=== PATIENT | female | born 1985 | race African-American/Black ===

== ENCOUNTER 2023-04-18 09:29 | Emergency (ER) | payer OTHER, SELFPAY ==
--- NOTE | ~2023-04-18 | US_ITS ---
EXAMINATION: US OBSTETRICAL ULTRASOUND CLINICAL INFORMATION: 2 months with pain COMPARISON: None available. LMP: Unknown. Gestational age by maternal dates is unknown. Estimated date of delivery by maternal dates is unknown. TECHNIQUE: Transabdominal imaging of pelvis is performed. FINDINGS: There is a single intrauterine gestational sac with visible embryo/fetus, and cardiac activity. Yolk sac is not visualized There is no significant subchorionic hemorrhage or hematoma. HR: 156 beats per minute. CRL (crown rump length): 2.37 cm (9 weeks and 1 day +/- 4 days). SAM (estimated date of delivery): 11/20/2023 +/- 4 days. MATERNAL ADNEXA: The right maternal ovary measures 2.3 x 1.1 x 1.6 cm. The left maternal ovary measures 3.7 x 2.4 x 2.1 cm. There is anechoic cyst measuring 1.1 x 1.4 x 0.9 cm. An echogenic cyst with peripheral flow seen suggestive of corpus luteal cyst measuring 1.1 x 1.2 x 1.6 cm. There is no significant maternal adnexal mass. No maternal pelvic ascites. US/US OB <= 14 weeks fetus IMPRESSION: 1. Single intrauterine gestation with ultrasound gestational age of 9 weeks 1 day +/- 4 days. 2. Estimated date of delivery is 11/20/2023 +/- 4 days. 3. Simple and corpus luteal cyst left ovary.
[2023-04-18 10:04] VITALS: BP 123/75; PULSE 92; RESP 16; TEMP 36.7; O2SAT 99
--- NOTE | 2023-04-18 10:06 | PC.NURSE ---
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
[2023-04-18 10:39] VITALS: BMI 35.4
--- NOTE | 2023-04-18 11:01 | ED.ABDPAIN ---
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 patient comes in with lower abdominal pain for 2 months and two months with no period. Patient does not feel like she is . patient does not currently have a doctor. No fever, there is dysuria, no vaginal discharge. no history of surgery, . Onset (ago): month(s) Pain Consistency: constant Severity: mild Related Data Allergies Allergy/AdvReac Type Severity Reaction Status Date / Time No Known Allergies Allergy Verified 04/18/23 11:11 Review of Systems Review of Systems Yes all other systems are reviewed and are negative Comments: Low abdominal pain with dysuria. [facility] Social History Social History Advance Directives: No Advance Directives Information Provided: No Physical Exam ED Vital Signs: Vital Signs - 24 hr 04/18/23 10:04 Temperature 98.0 F Pulse Rate 92 Respiratory Rate 16 Blood Pressure 123/75 Pulse Oximetry 99 Oxygen Delivery Method Room Air BMI result Body Mass Index 35.4 Const General: healthy appearing Nutritional Appearance: average body habitus Orientation/consciousness: oriented to person and patient oriented x3 Limitations: no limitations HENMT Head: Yes normal to inspection Ears: external ears normal General nose exam: Normal external nose present Mouth: Normal oral and palatal mucosa present and oropharynx normal Throat: Yes posterior oropharynx normal Eyes General: appearance normal, both eyes and all related structures Neck Neck: Yes normal visual inspection Chest Chest palpation & inspection: normal inspection of the chest Resp Auscultation: clear to auscultation bilaterally Cardio Jugular venous distension: no JVD Rate: regular rate Rhythm: regular rhythm Heart sounds: S1 normal heart sound present and S2 normal heart sound present GI Other: soft lower abdomen and suprapubic tenderness Palpation (GI): Tenderness to palpation present (GI) General: Yes no CVA tenderness Back/Spine/Pelvis Back: no CVA tenderness Skin General skin exam: no rashes or lesions noted Neuro General: oriented to person and patient oriented x3 Cranial nerves: Yes CN's II-XII intact bilaterally Motor exam (neuro): 5/5 motor strength present throughout Extrem General: Yes normal to inspection Psych Appearance: grossly normal Course Reevaluation(s) Reevaluation #1: patient with no evidence of UTI, she is 9 weeks will dc home with follow up for Dr. Pleitez Time: 14:49 Medical Decision Making Differential Diagnosis Differential Diagnoses: The differential diagnosis associated with the presentation includes (UTI, STD, ovarian cyst, ) Lab Data MDM Lab Attestation statement: I reviewed the patient's lab results. 04/18/23 11:17 04/18/23 11:17 Labs: Lab Results 04/18/23 04/18/23 04/18/23 Range/Units 10:43 10:45 11:17 WBC 7.8 (4.8-10.8) X10*3/uL RBC 4.37 (4.20-5.50) X10*6/uL Hgb 12.9 (12.0-16.0) g/dl Hct 39.4 (37.0-47.0) % MCV 90.2 (80.0-98.0) fL MCH 29.5 (27.0-33.0) pg MCHC 32.7 (31.0-35.0) g/dl RDW 14.1 (11.0-16.0) % Plt Count 280 (160-400) X10*3/uL MPV 9.1 L (9.4-12.3) fL Immature Gran % (Auto) 0.5 H (0.0-0.4) % Neut % (Auto) 59.4 (45-73) % Lymph % (Auto) 30.7 (20-40) % [place] % (Auto) 6.8 (2-11) % Eos % (Auto) 2.3 (0-4) % Baso % (Auto) 0.3 (0-2) % Lymph # (Auto) 2.4 (1.2-4.9) X10*3/uL [place] # (Auto) 0.5 (0.1-1.2) X10*3/uL Eos # (Auto) 0.2 (0.0-0.4) X10*3/uL Baso # (Auto) 0.0 (0.0-0.2) X10*3/uL Abs Immat Gran (auto) 0.04 H (0.00-0.03) X10*3/uL Absolute Neuts (auto) 4.6 (2.0-8.3) x10*3/uL Absolute Nucleated RBC 0.000 (0.0-0.012) X10*3/uL Nucleated RBC % (auto) 0.0 (0.0-0.2) /100WBC Sodium (135-145) mmol/L Potassium (3.3-5.1) mmol/L Chloride (96-108) mmol/L Carbon Dioxide (22-29) mmol/L Anion Gap (12-20) BUN (9-16) mg/dL Creatinine (0.5-1.4) mg/dL Estim Creat Clear Calc Estimated GFR Random Glucose (60-115) mg/dL Calcium (8.4-10.2) mg/dL Urine Color Yellow Urine Appearance Clear Urine pH 7.5 (5.0-9.0) Ur Specific [place] 1.010 (1.005-1.025) Urine Protein Negative (Neg-Trace) mg/dL Urine Glucose (UA) Negative (Negative) mg/dL Urine Ketones Negative (Negative) mg/dL Urine Blood Negative (Negative) Urine Nitrite Negative (Negative) Ur Leukocyte Esterase Moderate (2+) H (Negative) Urine RBC 0-2 (0-2) /HPF Urine WBC 6-10 (0-5) /HPF Ur Squamous Epith Cells 6-10 (0-2) /HPF Urine Bacteria Trace (None Seen) Hyaline Casts 0-2 (0-2) /LPF Urine Test POSITIVE H (NEGATIVE) 04/18/23 Range/Units 11:17 WBC (4.8-10.8) X10*3/uL RBC (4.20-5.50) X10*6/uL Hgb (12.0-16.0) g/dl Hct (37.0-47.0) % MCV (80.0-98.0) fL MCH (27.0-33.0) pg MCHC (31.0-35.0) g/dl RDW (11.0-16.0) % Plt Count (160-400) X10*3/uL MPV (9.4-12.3) fL Immature Gran % (Auto) (0.0-0.4) % Neut % (Auto) (45-73) % Lymph % (Auto) (20-40) % [place] % (Auto) (2-11) % Eos % (Auto) (0-4) % Baso % (Auto) (0-2) % Lymph # (Auto) (1.2-4.9) X10*3/uL [place] # (Auto) (0.1-1.2) X10*3/uL Eos # (Auto) (0.0-0.4) X10*3/uL Baso # (Auto) (0.0-0.2) X10*3/uL Abs Immat Gran (auto) (0.00-0.03) X10*3/uL Absolute Neuts (auto) (2.0-8.3) x10*3/uL Absolute Nucleated RBC (0.0-0.012) X10*3/uL Nucleated RBC % (auto) (0.0-0.2) /100WBC Sodium 137 (135-145) mmol/L Potassium 3.9 (3.3-5.1) mmol/L Chloride 107 (96-108) mmol/L Carbon Dioxide 23 (22-29) mmol/L Anion Gap 11 L (12-20) BUN 7 L (9-16) mg/dL Creatinine 0.72 (0.5-1.4) mg/dL Estim Creat Clear Calc 107.9 Estimated GFR > 60 Random Glucose 87 (60-115) mg/dL Calcium 9.0 (8.4-10.2) mg/dL Urine Color Urine Appearance Urine pH (5.0-9.0) Ur Specific [place] (1.005-1.025) Urine Protein (Neg-Trace) mg/dL Urine Glucose (UA) (Negative) mg/dL Urine Ketones (Negative) mg/dL Urine Blood (Negative) Urine Nitrite (Negative) Ur Leukocyte Esterase (Negative) Urine RBC (0-2) /HPF Urine WBC (0-5) /HPF Ur Squamous Epith Cells (0-2) /HPF Urine Bacteria (None Seen) Hyaline Casts (0-2) /LPF Urine Test (NEGATIVE) Independent Interpretation I performed an independent interpretation of an: Ultrasound (IUP with ) Radiology Impression Discussion of test interpretation with radiology: I have reviewed the radiologist's reading. Independent Historian Clinical information obtained from an independent historian. History obtained from or confirmed by: Spouse and Other (HIstory obtained through air traffic control supervisor) Social Determinants Patient?s care significantly limited by Social Determinants of Health including: Other Social Determinant of Health (Immigrated from [facility], no health care in the ) Discharge Plan Discharge Clinical Impression: Incidental intrauterine Patient Disposition: Home, Self-Care Instructions: First Trimester (ED) Referrals: Marino Pleitez MD [Physician] - 1 week
[2023-04-18 11:06] LABS: Appearance Urine Clear; Color Urine Yellow; Glucose Urine UA Negative (Negative); Leukocyte Esterase Urine Moderate (2+) (Negative); Nitrite Urine Negative (Negative); PH 7.5 (5.0-9.0); UMIC TRIGGER UACC YES; Urine Blood Negative (Negative); Urine Ketones Negative (Negative); Urine Protein Negative (Neg-Trace)
[2023-04-18 11:22] LABS: MANUAL DIFF FLAG NO
[2023-04-18 11:24] LABS: Basophils Percent Auto 0.3 % (0-2); Eosinophils Absolute Auto 0.2 X10*3/uL (0.0-0.4); Eosinophils Percent Auto 2.3 % (0-4); Hematocrit 39.4 % (37.0-47.0); Hemoglobin 12.9 g/dl (12.0-16.0); Imm Gran Abs Auto 0.04 X10*3/uL (0.00-0.03); Imm Gran Pct Auto 0.5 % (0.0-0.4); Lymphocytes Absolute Auto 2.4 X10*3/uL (1.2-4.9); Lymphocytes Percent Auto 30.7 % (20-40); Mean Corpuscular HGB Conc 32.7 g/dl (31.0-35.0); Mean Corpuscular Hemoglobin 29.5 pg (27.0-33.0); Mean Corpuscular Volume 90.2 fL (80.0-98.0); Mean Platelet Volume 9.1 fL (9.4-12.3); Monocytes Absolute Auto 0.5 X10*3/uL (0.1-1.2); Monocytes Percent Auto 6.8 % (2-11); Neutrophils Absolute Auto 4.6 x10*3/uL (2.0-8.3); Neutrophils Percent Auto 59.4 % (45-73); Platelet Count 280 X10*3/uL (160-400); Red Blood Count 4.37 X10*6/uL (4.20-5.50); Red Cell Distribution Width 14.1 % (11.0-16.0); White Blood Count 7.8 X10*3/uL (4.8-10.8)
[2023-04-18 11:25] LABS: UPreg QC Valid YES; Urine Pregnancy POSITIVE (NEGATIVE)
[2023-04-18 11:36] LABS: Anion Gap 11 (12-20); Blood Urea Nitrogen 7 mg/dL (9-16); Carbon Dioxide 23 mmol/L (22-29); Chloride 107 mmol/L (96-108); Creatinine Clr Calc Pharmacy 107.9; Estimated Glomerular Filt Rate > 60; Glucose Random 87 mg/dL (60-115); Potassium 3.9 mmol/L (3.3-5.1); Sodium 137 mmol/L (135-145)
[2023-04-18 11:43] LABS: Bacteria Urine Trace (None Seen); Hyaline Casts Urine 0-2 /LPF (0-2); RBC Urine 0-2 /HPF (0-2); UACC Culture Trigger YES
== END 2023-04-18 15:21 | disposition home or self-care (01) ==
PROVIDERS: Emergency Provider Emergency Medicine
DX: R10.30 Lower abdominal pain, unspecified (principal); Z33.1 Pregnant state, incidental
CPT/HCPCS: 36415; 76801; 80048; 81001; 81003; 81025; 85025; 87086; 99283; 99284

== ENCOUNTER 2023-05-30 10:08 | Outpatient (REF) | payer OTHER, SELFPAY ==
[2023-06-03 03:27] LABS: HPV mRNA E6/E7 rflx Not Detected (Not Detected)
== END 2023-05-30 10:09 | disposition home or self-care (01) ==
LOC: HO.LNP 10:08
PROVIDERS: Visit Provider Obstetrics & Gynecology
DX: Z12.4 Encounter for screening for malignant neoplasm of cervix (principal); Z11.51 Encounter for screening for human papillomavirus (HPV)
CPT/HCPCS: 87624; 88142

== ENCOUNTER 2023-05-30 10:08 | Outpatient (AMB) | payer OTHER, SELFPAY ==
[2023-05-30 10:15] VITALS: BP 110/80; BMI 42.1
--- NOTE | 2023-05-30 10:15 | A.OFFVIS_ITS ---
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 The patient was seen in 04/18/2023 in the emergency room ultrasound showed an IUP at 9 weeks and 1 day of gestation making her by today at 15 weeks and 1 day of gestation. The patient is doing well with no complaints no vitamin started had no care done yet for previous vaginal delivery with no complication PFS Female Reproductive History Menstrual Age of Menarche: 15 Duration of menses: 3-5 days control method: none Total pregnancies: 4 Full term: 4 Number of Living Children: 4 Review of Systems Const All systems reviewed & are unremarkable except as noted in HPI and below Card Reports as per HPI Resp Reports as per HPI GI Reports as per HPI and Reports no additional complaints Reports as per HPI Physical Exam Vital Signs: Last Vital Signs BP 110/80 05/30/23 10:15 BMI result Body Mass Index 42.1 Const General: cooperative, healthy appearing and comfortable Chest Chest palpation & inspection: normal inspection of the chest and normal palpation of entire chest wall Breast/axilla inspection: normal inspection of the breasts and normal inspection of the axillae Breast/axilla palpation: normal palpation of the breasts, normal palpation of the axillae and no axillary lymphadenopathy Resp Effort & Inspection: normal respiratory effort Auscultation: clear to auscultation bilaterally Percussion: percussion normal Cardio Palpation: normal PMI Rate: regular rate Rhythm: regular rhythm Heart sounds: no murmurs and no rubs Peripheral pulses: Peripheral pulses 2+ throughout GI Inspection: Yes normal to inspection Palpation (GI): Soft to palpation, nontender, no guarding, not rigid and No hepatosplenomegaly present Percussion: Yes normal to percussion Auscultation: normal bowel sounds Rectal Exam - Female: deferred Other: heart rate 150s General: Yes bladder normal to palpation External Female Exam: No lesion Speculum Exam - Vagina: normal appearance of the vagina, normal palpation, normal vaginal discharge and not erythematous Speculum Exam - Cervix: normal appearance of the cervix and normal palpation Bimanual exam- vagina & uterus: normal bimanual exam, normal palpation, bladder normal to palpation, consistency normal, normal palpation and other (Fifteen week scribed uterus) Bimanual Exam- Adnexa, other: normal adnexae, no masses and no tenderness Assessment & Plan Assessment & Plan (1) : Code(s): Z34.90 - Encounter for supervision of normal , unspecified, unspecified trimester Plan: Co testing, which GC and chlamydia taken. Initial OB labs ordered including CBC, screen, hepatitis-B surface antigen, hepatitis-C antibody, HIV, rubella antibody, syphilis screen, varicella immunoglobulins, urine drug screen, 1 hour glucose screen since the patient is a elevated BMI, hemoglobin electrophoresis, urine drug screen Since the patient is AMA will refer to genetic counseling FAS at 18 weeks Also discussed with the patient the CF disorder and its implications on lifestyle of affected individuals, large number of mutations causing this disorder, the screening test and its detection rate, false negative/positive rate and the residual risk of a negative test. CF screen ordered. All questions answered, the patient verbalized understanding. AFP for neural tube defects screening ordered vitamin 1 tablet p.o. q.d. sent to the patient's pharmacy SAB warnings given the patient, she is to call in case of cramping and or vaginal bleeding. Follow-up in 2 weeks for initial OB visit Orders: Orders Screen Today Z32. - Encounter for test, result positive Alpha Fetoprotein Today 32. - Encounter for test, result positive CF Carrier Screen Today . - Encounter for test, result positive Glucose 1 Hour PP 50gm Dose Today Z32. - Encounter for test, result positive Complete Blood Count no Diff Today . - Encounter for test, result positive Hemoglobin Electrophoresis Today 32. - Encounter for test, result positive Urine Culture Today . - Encounter for test, result positive Hepatitis B Surface Antigen Today Z32. - Encounter for test, result positive Hepatitis C Antibody Today . - Encounter for test, result positive HIV Ab/Ag Today Z32.01 - Encounter for test, result positive Rubella IgG Antibody Today Z32.01 - Encounter for test, result positive Syphilis Screen Today Z32.01 - Encounter for test, result positive Varicella IgG Antibody Today Z32.01 - Encounter for test, result positive Drug Screen Urine Today Z32.01 - Encounter for test, result positive US OB /maternal detail 3 Weeks Z32.01 - Encounter for test, result positive Medications: New no.144-folic acid 400 mcg 1 tab PO DAILY 180 days 180 tabs 1RF Coding Level of Care Code New Pt Level 3 (00313) Diagnoses Z34.90
== END 2023-05-30 10:48 | disposition home or self-care (01) ==
LOC: HO.HWS 10:08
PROVIDERS: Visit Provider Obstetrics & Gynecology
DX: Z34.90 Encounter for supervision of normal pregnancy, unspecified, unspecified trimester (principal)
CPT/HCPCS: 99203

== ENCOUNTER 2023-05-30 10:55 | Outpatient (REF) | payer OTHER, SELFPAY ==
[2023-05-31 12:00] LABS: CT PCR NOT DETECTED (Not Detect.); NG PCR NOT DETECTED (Not Detect.)
== END 2023-05-30 10:56 | disposition home or self-care (01) ==
LOC: HO.LAB 10:55
PROVIDERS: Visit Provider Obstetrics & Gynecology
DX: Z34.90 Encounter for supervision of normal pregnancy, unspecified, unspecified trimester (principal)
CPT/HCPCS: 0353U

== ENCOUNTER 2023-06-01 09:54 | Outpatient (REF) | payer OTHER, SELFPAY ==
[2023-06-01 12:07] LABS: Hematocrit 38.4 % (37.0-47.0); Hemoglobin 12.6 g/dl (12.0-16.0); Mean Corpuscular HGB Conc 32.8 g/dl (31.0-35.0); Mean Corpuscular Hemoglobin 29.1 pg (27.0-33.0); Mean Corpuscular Volume 88.7 fL (80.0-98.0); Mean Platelet Volume 9.8 fL (9.4-12.3); Platelet Count 306 X10*3/uL (160-400); Red Blood Count 4.33 X10*6/uL (4.20-5.50); Red Cell Distribution Width 14.1 % (11.0-16.0); White Blood Count 7.9 X10*3/uL (4.8-10.8)
[2023-06-01 12:39] LABS: Glucose 1 Hour PP 50gm Dose 93 mg/dL (60-140)
[2023-06-01 14:00] LABS: Amphetamine Screen Urine Not Detected (Not Detect); Barbiturates, Urine Not Detected (Not Detect); Benzodiazepines Screen Urine Not Detected (Not Detect); Cannabinoid Screen Urine Not Detected (Not Detect); Cocaine Screen Urine Not Detected (Not Detect); Fentanyl, urine Not Detected (Not Detect); Opiate Screen Urine Not Detected (Not Detect); Phencyclidine Screen Urine Not Detected (Not Detect)
[2023-06-02 05:15] LABS: HBsAGNum1 0.36 S/CO (0.00-0.99); HIV AB/AG Nonreactive (Nonreactive); HIV Num 1 0.06 S/CO (0.00-0.99); Hepatitis B Surface Antigen Negative (Negative); ~HepC Num1 0.11 S/CO (0.00-0.79); ~Hepatitis C Antibody Nonreactive (Nonreactive)
[2023-06-02 12:01] LABS: Syphilis Screen Nonreactive (Nonreactive)
[2023-06-05 13:28] LABS: Alpha Fetoprotein 28.8 ng/mL
[2023-06-05 23:44] LABS: Hematocrit 38.1 % (35.0-45.0); Hemoglobin 12.7 g/dL (11.7-15.5); MCH 29.9 pg (27.0-33.0); MCV 89.6 fL (80.0-100.0); RBC 4.25 Million/uL (3.80-5.10)
[2023-06-13 00:38] LABS: CF Ethnicity NG; Cystic Fibrosis NEGATIVE (NEGATIVE)
== END 2023-06-01 09:55 | disposition home or self-care (01) ==
LOC: HO.LAB 09:54
PROVIDERS: PCP Obstetrics & Gynecology; Visit Provider Obstetrics & Gynecology
DX: Z32.01 Encounter for pregnancy test, result positive (principal)
CPT/HCPCS: 80307; 81220; 82105; 82950; 83020; 85014; 85018; 85027; 85041; 86762; 86780; 86787; 86803; 86850; 86900; 87086; 87340; 87389

== ENCOUNTER → 2023-06-13 10:04 | Outpatient (BNVA) | payer OTHER, SELFPAY | PROVIDERS: PCP Obstetrics & Gynecology; Visit Provider Obstetrics & Gynecology ==

== ENCOUNTER 2023-06-16 10:01 | Outpatient (REF) | payer OTHER, SELFPAY | END 2023-06-16 10:02 | disposition home or self-care (01) | LOC: HO.LAB 10:01 | PROVIDERS: Visit Provider Obstetrics & Gynecology | DX: O09.529 Supervision of elderly multigravida, unspecified trimester (principal) | CPT/HCPCS: 36415; 82105 ==

== ENCOUNTER 2023-06-23 13:38 | Outpatient (AMB) | payer OTHER, SELFPAY ==
--- NOTE | 2023-06-23 13:39 | A.OFFVISPN_ITS ---
Intake Vital Signs 06/23/23 13:49 Height 5 ft 1 in Weight 225 lb BMI 42.5 BP 122/82 Blood Pressure Location Lt brachial Position Sitting Intake Visit Reasons: CARLOS Employee Benefits Insurance Agent Required: Yes Employee Benefits Insurance Agent Language: Maria Arnett Employee Benefits Insurance Agent Name: [id number] Allergies No Known Allergies Allergy (Verified 06/23/23 13:48) Patient : Yes PFSH Medical History (Updated 06/23/23 @ 16:02 by Dorota Cherry CNM) AMA (advanced maternal age) multigravida 35+ Obesity, morbid, BMI 40.0-49.9 Social History (Updated 06/13/23 @ 10:48 by Malena Jarrett) Household Members: Spouse and Family Both parents involved: Yes Caregiver staying overnight: No Housing: Apartment Are you a primary day care attendant to a significant other at home: No Do you presently have visiting nurse or other home services: No 75 years or older and lives alone: No Alcohol intake: never Patient Tobacco Use Status: Never used Tobacco Agree to transfusion: Yes service: No Current occupational status: unemployed Female Reproductive History Menstrual Age of Menarche: 15 Total pregnancies: 5 Number of Living Children: 4 History History 5 Elective abortions 0 Para 4 Spontaneous abortions 0 Hx # Term Pregnancies 4 Ectopic pregnancies 0 Hx # Pregnancies 0 Multiple births 0 Past Pregnancies Del. Date GA/Weeks Outcome Route Wt Inf Gender Labor Cleo Anesthesia Location Provider Complicate 04/29/06 40 live - full term Male [facility] none 10/26/09 40 live - full term Male [facility] none 12/23/11 40 live - full term Male [facility] none 06/22/13 40 live - full term Female [facility] none Questionnaire History History : 5 Visit SAM Calculator Estimated Delivery Date Method Current WG Current Estimate 11/20/23 Ultrasound #1 18w 4d Expected Delivery Route/Plan Specific Issues/Plans AMA BMI 42 OB Problem List: 37yr. old ? ? G5 ?P4004 ? ? ?LMP: EDC:11/20/23 ?by 9 w u/s ? ? ?Blood type: A pos Problem List: 1. recent refugee to [place] from [facility] via [place], speaks Emirati Creole Slovenian, and Jordanian and Amharic Testing: Panorama/and or First Tri screen: ? ?risk too late,,,, NT scan: AFP:..see RN note FAS: pending 07/04 Glucose: early n/a? 28 wk glucose: ? CBC 1st Tri: 12.7/38.4/306? 28 wk. CBC: GBS: Vaccinations: Flu: Covid: Tdap: Education/Services WIC: CBE: Breast feeding classes: Social Supports/Stressors: Living situation: living in mcc in [place] in own apartment with family( and other children). Supports:?, Work/school: Transportation: unclear but states she has transportation Labor, and Concerns: Labor support: Plan: Hx of normal births.... Infant Feeding Plans: control: wants no more children after this 1 but does not have specific plan at this time 06/23/23- continue to explore.... OB Visit Log Initial Weight: 189 lb 9.561 oz Date -?-?-?-?-?-?-?-?-?-?-?-?- EGA Weight Gest Week Fundal Ht Present FHR move Efface % Edema BP PrePreg We Weight GTT -?-?-?-?-?-?-?-?-?-?-?-?- Glucose LV Protein Blood Type 06/13/23 -?-?-?-?-?-?-?-?-?-?-?-?- 17w 1d 222 lb 8 oz (+32 lb 14.439 oz) 222 lb 8 oz -?-?-?-?-?-?-?-?-?-?-?-?- 06/23/23 -?-?-?-?-?-?-?-?-?-?-?-?- 18w 4d 225 lb (+35 lb 6.439 oz) 18 140 active 122/82 225 lb -?-?-?-?-?-?-?-?--?-?-?-?- Notes Visit Date: 06/23/23 Last Updated by: Dorota Cherry CNM Patient presents to visit which is scheduled as an OB PE however she has signed in later than appointment time though she says she arrived on time.. Patient speaks Slovenian Emirati Creole. It developed at the very end of the visit that she also speaks Jordanian which turned out to be a better way of communication then using the translation tablet. Patient appeared annoyed during the visit and it was not until she volunteered that she spoke Jordanian at the end and I was able to communicate with her in Jordanian that she smiled and she and her relaxed and were able to communicate more freely. They live in a mcc they have their own apartment there are other families there from [facility] but they all have their own apartments. She says she does have transportation to get to [facility] for the ultrasound and that took quite a bit of translation to establish. I did let her know that that is going to be where she is going to give as well in reviewing the chart while she today she is scheduled for new OB PE visit it develops that when she saw Dr. Pleitez on 05/30/2023 he did a complete exam for her on that day including Pap smear and testing for STIs which were all negative. She has had all of her blood work and it was all negative and she is not anemic and because she has no history of gestational diabetes that was not necessary to be done. She has her OB anatomy survey ultrasound at [facility] and she has the address written down in her wallet and she is going there on July 04. We will see her again in 4 weeks. She tells me she is eating well and getting plenty of protein and vegetables. Neither she nor her had other questions or concerns today for this visit. I did acknowledge that it must be very challenging to be in a new country and when she shared that she spoke Jordanian we were able to get much further. I will send her vitamin prescription by computer to [facility] and explained to her that there is no written prescription and that is how she will get the prescription. additionally she shared that she delivered all of her children in the hospital in [facility] and she had no difficulty. And I also inquired as to what her future plans for having babies was and she said that she is having no more babies after this 1 and that she is done having babies after this. I asked her what her plan was and she said her plan is no more babies and I said we will talk about this further in future visits so that we workout exactly how she will accomplish this but she is very clear that she does not want anymore children after this 1. 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 LMP unknown. US on 04/18/23 at 9w1d gives SAM of 11/20/23 and GA today of 17w1d. She has moved here from [facility]. BMI is 42. This was unplanned but the couple is happy. Pt saw Dr Pleitez for consult and has already had her labs done. She is scheduled for OB PE 06/23/23 with Dorota and for FAS at [facility] 07/04/23 @ 0830. She had an appt for genetic counseling at [facility] 06/07/23, report of visit is pending. Pt was given a folder in Jordanian as she does speak the language somewhat but her first language is Emirati Creole. We reviewed danger signs, MD coverage 12/06 and how to reach MD after hours. She is taking her PNV daily and has no c/o at this time. AFP was ordered by Dr Pleitez but the result was for tumor marker and not . Will add order for AFP maternal serum and send the ordering worksheet once it is completed to Chemistry. Pt was too late for NT US but is scheduled for FAS as noted above. Pt will go to lab in the next couple of days. We reviewed first trimester education. Bry has no further questions at this time. She verbalizes understanding and agrees with plan. 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 Patient's age 35 years or older as of estimated date of delivery: Yes 2. Thalassemia (Yoruba, Thai, Mediterranean, or Background); MCV less than 80: No 3. Neural Tube Defect (Meningomyelocele, Spina Bifida, or Anencephaly): No 4. Congenital Heart Defect: No 5. Down Syndrome: No 6. Pete-Sachs (Ashkenazi Denominational, Cajun, Slovenian [place]): No 7. Jaime Disease (Ashkenazi Denominational): No 8. Familial Dysautonomia (Ashkenazi Denominational): No 9. Sickle Cell Disease or Trait (): No 10. Hemophilia or other blood disorders: No 11. Muscular Dystrophy: No 12. Cystic Fibrosis: No 13. Luisa's Chorea: No 14. Intellectual disability/Autism: No 15. Other inherited genetic or chromosomal disorder: No 16. Maternal Metabolic Disorder (EG,TYPE 1 Diabetes, PKU): No 17. Patient or baby's father had a child with defects not listed above: No 18. Recurrent loss or a stillbirth: No 19. Medications (including supplements, vitamins, herbs or otc drugs)/illicit/recreational drugs/alcohol since last menstrual period: No 20. Any other: No Infection History 1. Live with someone with TB or exposed to TB: No 2. Rash or viral illness since last menstrual period: No 3. Hepatitis B,C: No Other (see comments) Source: [employer] Exam Const Other: Below is the record of Dr. Pleitez's complete physical exam that he did for this patient on 05/30/2023, to be used for her OB physical as it is complete. She had her Pap smear which is negative as well as testing for STIs and she also had all of her initial lab work which was all within normal limits. She is not anemic she has no history of gestational diabetes so no glucose screening was necessary.----Ellen [facility] [address] [place] [id number] Office Visit Report Signed Patient: Bry Durbin MR#: [id number] : 1985 Acct:[id number] Age/Sex: 37 / F ADM/SER Date: 05/30/23 Loc: [facility] ADM/SER Time:1008 Attending Provider: Marino Pleitez MD cc: Physician,Unknown ~ Intake Vital Signs ? 05/30/2310:15 Height 5 ft 1 in Weight 223 lb BMI 42.1 BP 110/80 Intake Visit Reasons:?ER follow up/Creole Employee Benefits Insurance Agent Employee Benefits Insurance Agent Required: Yes Employee Benefits Insurance Agent Language: Emirati Creole Employee Benefits Insurance Agent Name: Braeden [id number] Information Interpreted: non-clinical & clinical Hearth Feeder: Hearth Feeder Present (Brittnee) Allergies No Known Allergies Allergy (Verified 05/30/23 10:19) Is last menstrual period known: No (forgot) Post menopausal: No HPI HPI Comments History of Present Illness ? ? ? Details Presenting as ED follow-up.? The patient was seen in 04/18/2023 in the emergency room ultrasound showed an IUP at 9 weeks and 1 day of gestation making her by today at 15 weeks and 1 day of gestation.? The patient is doing well with no complaints no vitamin started had no care done yet for previous vaginal delivery with no complication ? PFSH Female Reproductive History Menstrual Age of Menarche: 15 Duration of menses: 3-5 days control method: none Total pregnancies: 4 Full term: 4 Number of Living Children: 4 Review of Systems Const All systems reviewed & are unremarkable except as noted in HPI and below Card Reports as per HPI Resp Reports as per HPI GI Reports as per HPI and Reports no additional complaints Reports as per HPI Physical Exam Vital Signs: Last Vital Signs BP ?110/80 ?05/30/23 10:15 BMI result Body Mass Index ? 42.1? Const General: cooperative, healthy appearing and comfortable Chest Chest palpation & inspection: normal inspection of the chest and normal palpation of entire chest wall Breast/axilla inspection: normal inspection of the breasts and normal inspection of the axillae Breast/axilla palpation: normal palpation of the breasts, normal palpation of the axillae and no axillary lymphadenopathy Resp Effort & Inspection: normal respiratory effort Auscultation: clear to auscultation bilaterally Percussion: percussion normal Cardio Palpation: normal PMI Rate: regular rate Rhythm: regular rhythm Heart sounds: no murmurs and no rubs Peripheral pulses: Peripheral pulses 2+ throughout GI Inspection: Yes normal to inspection Palpation (GI): Soft to palpation, nontender, no guarding, not rigid and No hepatosplenomegaly present Percussion: Yes normal to percussion Auscultation: normal bowel sounds Rectal Exam - Female: deferred Other: heart rate 150s General: Yes bladder normal to palpation External Female Exam: No lesion Speculum Exam - Vagina: normal appearance of the vagina, normal palpation, normal vaginal discharge and not erythematous Speculum Exam - Cervix: normal appearance of the cervix and normal palpation Bimanual exam- vagina & uterus: normal bimanual exam, normal palpation, bladder normal to palpation, consistency normal, normal palpation and other (Fifteen week scribed uterus) Bimanual Exam- Adnexa, other: normal adnexae, no masses and no tenderness Assessment & Plan Assessment & Plan (1) : ?Code(s): Z34.90 - Encounter for supervision of normal , unspecified, unspecified trimester ?Plan: Co testing, which GC and chlamydia taken.? Initial OB labs ordered including CBC, screen, hepatitis-B surface antigen, hepatitis-C antibody, HIV, rubella antibody, syphilis screen, varicella immunoglobulins, urine drug screen, 1 hour glucose screen since the patient is a elevated BMI, hemoglobin electrophoresis, urine drug screen Since the patient is AMA will refer to genetic counseling FAS at 18 weeks Also discussed with the patient the CF disorder and its implications on lifestyle of affected individuals,? large number of mutations causing this disorder, the screening test and its detection rate, false negative/positive rate and the residual risk of a negative test.? CF screen ordered.? All questions answered, the patient verbalized understanding. AFP for neural tube defects screening ordered vitamin 1 tablet p.o. q.d. sent to the patient's pharmacy SAB warnings given the patient, she is to call in case of cramping and or vaginal bleeding. Follow-up in 2 weeks for initial OB visit ? ? ? Orders: Orders Screen Today Z. - Encounter for test, result positive ? Alpha Fetoprotein Today Z32. - Encounter for test, result positive ? CF Carrier Screen Today Z32. - Encounter for test, result positive ? Glucose 1 Hour PP 50gm Dose Today Z32. - Encounter for test, result positive ? Complete Blood Count no Diff Today Z32. - Encounter for test, result positive ? Hemoglobin Electrophoresis Today Z32. - Encounter for test, result positive ? Urine Culture Today Z. - Encounter for test, result positive ? Hepatitis B Surface Antigen Today Z. - Encounter for test, result positive ? Hepatitis C Antibody Today Z32. - Encounter for test, result positive ? HIV Ab/Ag Today Z32. - Encounter for test, result positive ? Rubella IgG Antibody Today Z. - Encounter for test, result positive ? Syphilis Screen Today Z32. - Encounter for test, result positive ? Varicella IgG Antibody Today Z32. - Encounter for test, result positive ? Drug Screen Urine Today Z. - Encounter for test, result positive ? US OB /maternal detail 3 Weeks Z32. - Encounter for test, result positive ? Results Reviewed Results Reviewed: Patient: Bry Durbin MR#: [id number] : 1985 Acct:[id number] Age/Sex: 37 / F ADM Date: 04/18/23 Loc: .ED Attending Dr: Ordering Physician: Yehuda Jackson MD Date of Service: 04/18/23 Procedure(s): US OB <= 14 weeks fetus Accession Number(s): [id number] cc: Yehuda Jackson MD~ EXAMINATION:? US OBSTETRICAL ULTRASOUND CLINICAL INFORMATION:? 2 months with pain COMPARISON:? None available.? LMP: Unknown. Gestational age by maternal dates is unknown. Estimated date of delivery by maternal dates is unknown. TECHNIQUE: Transabdominal imaging of pelvis is performed. ? FINDINGS: There is a single intrauterine gestational sac with visible embryo/fetus, and cardiac activity. Yolk sac is not visualized There is no significant subchorionic hemorrhage or hematoma. HR:? 156 beats per minute. CRL (crown rump length): ? 2.37 cm (9 weeks and 1 day +/- 4 days). SAM (estimated date of delivery):? 11/20/2023 +/- 4 days. ? MATERNAL ADNEXA: ? ? The right maternal ovary measures 2.3 x 1.1 x 1.6 cm.? The left maternal ovary measures 3.7 x 2.4 x 2.1 cm.? There is anechoic cyst measuring 1.1 x 1.4 x 0.9 cm. An echogenic cyst with peripheral flow seen suggestive of corpus luteal cyst measuring 1.1 x 1.2 x 1.6 cm. There is no significant maternal adnexal mass.? No maternal pelvic ascites. US/US OB <= 14 weeks fetus IMPRESSION: 1. Single intrauterine gestation with ultrasound gestational age of? 9 weeks 1 day +/- 4 days. 2. Estimated date of delivery is 11/20/2023 +/- 4 days. 3. Simple and corpus luteal cyst left ovary. Dictated By: Liam Azevedo MD Signed By: <Electronically signed by Liam Azevedo MD in OV> 04/18/23 1438 DD/ 1308 TD/TT:? Operations Vice President: ABENA Assessment & Plan Assessment & Plan (1) AMA (advanced maternal age) multigravida 35+: Code(s): O09.529 - Supervision of elderly multigravida, unspecified trimester Category: Medical (2) Obesity, morbid, BMI 40.0-49.9: Code(s): E66.01 - Morbid (severe) obesity due to excess calories Category: Medical (3) : Comment: Advanced maternal age Code(s): Z34.90 - Encounter for supervision of normal , unspecified, unspecified trimester Category: Medical (4) Supervision of normal in second trimester: Code(s): Z34.92 - Encounter for supervision of normal , unspecified, second trimester Category: Medical (5) Immigrant with language difficulty: Code(s): Z60.3 - Acculturation difficulty Category: Social Hx Medications: New PNV,calcium 22-sljt-uhktf acid 27 mg iron- 1 mg ( Vitamins Plus Low Iron) 1 tab PO DAILY 90 tabs 4RF Coding Level of Care Code [place] Diagnoses AMA (advanced maternal age) multigravida 35+ O09.529 Obesity, morbid, BMI 40.0-49.9 E66.01 Z34.90 Supervision of normal in second trimester Z34.92 Immigrant with language difficulty Z60.3
[2023-06-23 13:49] VITALS: BP 122/82; BMI 42.5
== END 2023-06-23 14:22 | disposition home or self-care (01) ==
LOC: HO.HWS 13:38
PROVIDERS: PCP Obstetrics & Gynecology; Visit Provider Advanced Practice Midwife
DX: O09.529 Supervision of elderly multigravida, unspecified trimester (principal); E66.01 Morbid (severe) obesity due to excess calories; Z60.3 Acculturation difficulty
CPT/HCPCS: 25942

== ENCOUNTER → 2023-06-23 13:38 | Outpatient (BNVA) | payer OTHER, SELFPAY | PROVIDERS: PCP Obstetrics & Gynecology; Visit Provider Advanced Practice Midwife | DX: O09.522 Supervision of elderly multigravida, second trimester (principal); O99.212 Obesity complicating pregnancy, second trimester; E66.01 Morbid (severe) obesity due to excess calories; Z3A.18 18 weeks gestation of pregnancy; Z59.01 Sheltered homelessness; Z62.898 Other specified problems related to upbringing | CPT/HCPCS: 99212 ==

== ENCOUNTER 2023-07-21 13:29 | Outpatient (AMB) | payer OTHER, SELFPAY ==
[2023-07-21 13:33] VITALS: BP 120/72; BMI 42.5
--- NOTE | 2023-07-21 13:33 | MHC.OFFVISPN ---
Intake Vital Signs 07/21/23 13:33 Height 5 ft 1 in Weight 225 lb BMI 42.5 BP 120/72 Intake Visit Reasons: Isaías Arc Furnace Operator Required: Yes Arc Furnace Operator Language: Maria Arnett Arc Furnace Operator Name: Sachi [id number] Accompanied by: Significant Other Allergies No Known Allergies Allergy (Verified 07/21/23 13:45) Medication List - Last Reconciled 07/21/23 by Dorota Cherry CNM PNV,calcium 02-fgcm-rjjsq acid 27 mg iron- 1 mg ( Vitamins Plus Low Iron) 1 tab PO DAILY Post menopausal: No Patient : Yes PFSH Medical History AMA (advanced maternal age) multigravida 35+ Obesity, morbid, BMI 40.0-49.9 Social History Household Members: Spouse and Family Both parents involved: Yes Caregiver staying overnight: No Housing: Apartment Are you a primary care advocate to a significant other at home: No Do you presently have visiting nurse or other home services: No 75 years or older and lives alone: No Alcohol intake: never Patient Tobacco Use Status: Never used Tobacco Agree to transfusion: Yes service: No Current occupational status: unemployed Female Reproductive History Menstrual Age of Menarche: 15 control method: none Total pregnancies: 5 Full term: 4 Number of Living Children: 4 Date of last pap smear: 06/01/23 (negative) History History 5 Elective abortions 0 Para 4 Spontaneous abortions 0 Hx # Term Pregnancies 4 Ectopic pregnancies 0 Hx # Pregnancies 0 Multiple births 0 Past Pregnancies Del. Date GA/Weeks Outcome Route Wt Inf Gender Labor Cleo Anesthesia Location Provider Complicate 04/29/06 40 live - full term Male [facility] none 10/26/09 40 live - full term Male [facility] none 12/23/11 40 live - full term Male [facility] none 06/22/13 40 live - full term Female [facility] none Questionnaire History History : 5 Visit SAM Calculator Estimated Delivery Date Method Current WG Current Estimate 11/20/23 Ultrasound #1 22w 4d Expected Delivery Route/Plan Specific Issues/Plans AMA BMI 42 OB Problem List: 37yr. old ? ? G5 ?P4004 ? ? ?LMP: EDC:11/20/23 ?by 9 w u/s ? ? ?Blood type: A pos Problem List: 1. recent refugee to [place] from [facility] via [place], speaks Slovak Creole Stateless, and Maltese and Sami Testing: Panorama/and or First Tri screen: ? ?risk too late,,,,07/21/23-patient eventually had tseting after genetic screening visit at [facility] on 07/04/23 and then anatomy scan was rescheduled to 07/06/2023. NT scan: AFP:..see RN note FAS: pending 07/04-done 07/06/2023 results to chart later. Echogenic focus noted in heart no cardiac anomalies noted. Also marginal cord insertion noted plan for growth scan at 32 weeks. Glucose: early n/a? 28 wk glucose: ? CBC 1st Tri: 12.7/38.4/306? 28 wk. CBC: GBS: Vaccinations: Flu: Covid: Tdap: Education/Services WIC: CBE: Breast feeding classes: Social Supports/Stressors: Living situation: living in senior care in [place] in own apartment with family( and other children). Supports:?, Work/school: (children are attending school in [place] and like it-07/21/23) Transportation: unclear but states she has transportation Labor, and Concerns: Labor support: Plan: Hx of normal births.... Feeding Plans: control: wants no more children after this 1 but does not have specific plan at this time 06/23/23- continue to explore.... OB Visit Log Initial Weight: 189 lb 9.561 oz Date <del>?</del> EGA Weight Gest Week Fundal Ht Present FHR move Efface % Edema BP PrePreg We Weight GTT <del>?</del> Glucose LV Protein Blood Type 06/13/23 <del>?</del> 17w 1d 222 lb 8 oz (+32 lb 14.439 oz) 222 lb 8 oz <del>?</del> 06/23/23 <del>?</del> 18w 4d 225 lb (+35 lb 6.439 oz) 18 140 active 122/82 225 lb <del>?</del> 07/21/23 <del>?</del> 22w 4d 225 lb (+35 lb 6.439 oz) 25 140 active 120/72 225 lb <del>?</del> Notes Visit Date: 07/21/23 Last Updated by: Dorota Cherry CNM Patient is here for visit with her . Translation was done more effectively today with a manager corporate available on tablet identification of which is noted by the medical and health services manager. The patient did not make much eye contact for until the end of the visit and had her head hung down and appeared lethargic and when I asked her about appearing tired she said her upper back hurt. She says that when she lays in a certain position it feels better and also it feels better when she lets of warm shower run on it. I discussed posture and trying to help hold herself in a better way to not make her back pain worse, and also suggested perhaps her might want to give her a massage and they laughed and he said that he does.. The patient was worried because she said that they told her there was something that they saw on the baby's head and I reviewed the ultrasound with them that showed the echogenic focus that was noted and also the marginal cord insertion. She has been praying every day for her baby because her other children are okay and she is very much hoping this baby will be okay to. Her baby is very active and this is reassuring to her. I had her record the baby's heart rate so they can share this with their other children and they enjoyed this. I reviewed the negative panoramic screen that showed that the fetus at is at low risk for trisomy 21 and 18 and 13. She says she is eating well and in fact is very hungry and all she can think gives eating after this visit. Her legs appeared slightly edematous to me but she says they are not and that is how they always look. They are still living in [place] at the same place but the children are in school in [place] because when they 1st came they were in a hotel there and the children like the school so that is where they go to school. They are happy that they are having a boy . Her next visit can be in 4 weeks and I also told her that in about 6 weeks she will be getting more lab work to check on the blood sugar to screen for diabetes ; And also that in around 32 weeks 10 weeks from now we will be requesting another ultrasound at [facility] to check on growth because of the marginal cord insertion. Visit Date: 06/23/23 Last Updated by: Dorota Cherry CNM Patient presents to visit which is scheduled as an OB PE however she has signed in later than appointment time though she says she arrived on time.. Patient speaks Stateless Slovak Creole. It developed at the very end of the visit that she also speaks Maltese which turned out to be a better way of communication then using the translation tablet. Patient appeared annoyed during the visit and it was not until she volunteered that she spoke Maltese at the end and I was able to communicate with her in Maltese that she smiled and she and her relaxed and were able to communicate more freely. They live in a senior care they have their own apartment there are other families there from [facility] but they all have their own apartments. She says she does have transportation to get to [facility] for the ultrasound and that took quite a bit of translation to establish. I did let her know that that is going to be where she is going to give as well in reviewing the chart while she today she is scheduled for new OB PE visit it develops that when she saw Dr. Pleitez on 05/30/2023 he did a complete exam for her on that day including Pap smear and testing for STIs which were all negative. She has had all of her blood work and it was all negative and she is not anemic and because she has no history of gestational diabetes that was not necessary to be done. She has her OB anatomy survey ultrasound at [facility] and she has the address written down in her wallet and she is going there on July 04. We will see her again in 4 weeks. She tells me she is eating well and getting plenty of protein and vegetables. Neither she nor her had other questions or concerns today for this visit. I did acknowledge that it must be very challenging to be in a new country and when she shared that she spoke Maltese we were able to get much further. I will send her vitamin prescription by computer to [facility] and explained to her that there is no written prescription and that is how she will get the prescription. additionally she shared that she delivered all of her children in the hospital in [facility] and she had no difficulty. And I also inquired as to what her future plans for having babies was and she said that she is having no more babies after this 1 and that she is done having babies after this. I asked her what her plan was and she said her plan is no more babies and I said we will talk about this further in future visits so that we workout exactly how she will accomplish this but she is very clear that she does not want anymore children after this 1. RTC 4 weeks Visit Date: 06/13/23 Last Updated by: Malena Klein Kolby Londono is a 37 yo here for ethics manager with her , Robyn. LMP unknown. US on 04/18/23 at 9w1d gives SAM of 11/20/23 and GA today of 17w1d. She has moved here from [facility]. BMI is 42. This was unplanned but the couple is happy. Pt saw Dr Pleitez for consult and has already had her labs done. She is scheduled for OB PE 06/23/23 with Dorota and [place] [facility] [place] @ 0830. She had an appt for genetic counseling at [facility] [place], report of visit is pending. Pt was given a folder in Maltese as she does speak the language somewhat but her first language is Slovak Creole. We reviewed danger signs, MD coverage 12/06 and how to reach MD after hours. She is taking her PNV daily and has no c/o at this time. AFP was ordered by Dr Pleitez but the result was for tumor marker and not . Will add order for AFP maternal serum and send the ordering worksheet once it is completed to Chemistry. Pt was too late for NT US but is scheduled for FAS as noted above. Pt will go to lab in the next couple of days. We reviewed first trimester education. Bry has no further questions at this time. She verbalizes understanding and agrees with plan. Results Reviewed Results Reviewed: Name:?Bry Durbin Age/Sex: 37/F Attending: Marino Pleitez MD : 1985 Submitted by: Marino Pleitez MD Copies to: MR #: [id number] ? Status: DEP REF Col[facility]: [facility]30/23 [facility] Re[facility]: 06/01/23 Interpretation Satisfactory for evaluation. Coccobacilli consistent with shift in vaginal aby. Negative for intraepithelial lesion or malignancy. ?HPV mRNA E6/E7:? NOT DETECTED This assay detects E6/E7 viral messenger RNA (mRNA) from 14 high-risk HPV types (16, 18, 31, 33, 35, 39, 45, 51, 52, 56, 58, 59, 66, 68) HPV testing performed by [facility], [place], [place].? See reference laboratory pion of the EMR for entire report. Clinical Information LMP: Previous PAP test: Unknown date/findings Material Received ThinPrep-Cervical Electronically Signed By: DANICA Lund (ASCP) ? 06/23/23 1025 Signed Patient: Bry Durbin MR#: [id number] : 1985 Acct:[id number] Age/Sex: 37 / F ADM Date: 04/18/23 Loc: HO.ED Attending Dr: Ordering Physician: Yehuda Jackson MD Date of Service: 04/18/23 Procedure(s): US OB <= 14 weeks fetus Accession Number(s): [id number] cc: Yehuda Jackson MD~ EXAMINATION:? US OBSTETRICAL ULTRASOUND CLINICAL INFORMATION:? 2 months with pain COMPARISON:? None available.? LMP: Unknown. Gestational age by maternal dates is unknown. Estimated date of delivery by maternal dates is unknown. TECHNIQUE: Transabdominal imaging of pelvis is performed. ? FINDINGS: There is a single intrauterine gestational sac with visible embryo/fetus, and cardiac activity. Yolk sac is not visualized There is no significant subchorionic hemorrhage or hematoma. HR:? 156 beats per minute. CRL (crown rump length): ? 2.37 cm (9 weeks and 1 day +/- 4 days). SAM (estimated date of delivery):? 11/20/2023 +/- 4 days. ? MATERNAL ADNEXA: ? ? The right maternal ovary measures 2.3 x 1.1 x 1.6 cm.? The left maternal ovary measures 3.7 x 2.4 x 2.1 cm.? There is anechoic cyst measuring 1.1 x 1.4 x 0.9 cm. An echogenic cyst with peripheral flow seen suggestive of corpus luteal cyst measuring 1.1 x 1.2 x 1.6 cm. There is no significant maternal adnexal mass.? No maternal pelvic ascites. US/US OB <= 14 weeks fetus IMPRESSION: 1. Single intrauterine gestation with ultrasound gestational age of? 9 weeks 1 day +/- 4 days. 2. Estimated date of delivery is 11/20/2023 +/- 4 days. 3. Simple and corpus luteal cyst left ovary. Dictated By: Liam Azevedo MD Signed By: <Electronically signed by Liam Azevedo MD in OV> 04/18/23 1438 DD/ 1308 TD/TT:? [place]: [facility] [place] Assessment & Plan Assessment & Plan (1) Immigrant with language difficulty: Code(s): Z60.3 - Acculturation difficulty Category: Social Hx (2) Supervision of normal in second trimester: Code(s): Z34.92 - Encounter for supervision of normal , unspecified, second trimester Category: Medical (3) AMA (advanced maternal age) multigravida 35+: Code(s): O09.529 - Supervision of elderly multigravida, unspecified trimester Category: Medical (4) Obesity, morbid, BMI 40.0-49.9: Code(s): E66.01 - Morbid (severe) obesity due to excess calories Category: Medical (5) Echogenic focus of heart of fetus affecting antepartum care of mother: Code(s): O35.BXX0 - Maternal care for other (suspected) abnormality and damage, cardiac anomalies, not applicable or unspecified Category: Medical (6) Marginal insertion of umbilical cord affecting management of mother: Code(s): O43.199 - Other malformation of placenta, unspecified trimester Category: Medical Orders: Orders US OB follow up Today E66.01 - Morbid (severe) obesity due to excess calories, O09.529 - Supervision of elderly multigravida, unspecified trimester, O35.BXX0 - Maternal care for other (suspected) abnormality and damage, cardiac anomalies, not applicable or unspecified, O43.199 - Other malformation of placenta, unspecified trimester, Z34.92 - Encounter for supervision of normal , unspecified, second trimester, Z60.3 - Acculturation difficulty Glucose 1 Hour PP 50gm Dose Today Z34.92 - Encounter for supervision of normal , unspecified, second trimester Complete Blood Count no Diff Today Z34.92 - Encounter for supervision of normal , unspecified, second trimester Syphilis Screen 6 Weeks Z34.92 - Encounter for supervision of normal , unspecified, second trimester Coding Level of Care Code [place] Diagnoses Immigrant with language difficulty Z60.3 Supervision of normal in second trimester Z34.92 AMA (advanced maternal age) multigravida 35+ O09.529 Obesity, morbid, BMI 40.0-49.9 E66.01 Echogenic focus of heart of fetus affecting antepartum care of mother O35.BXX0 Marginal insertion of umbilical cord affecting management of mother O43.199
== END 2023-07-21 14:55 | disposition home or self-care (01) ==
LOC: HO.HWS 13:29
PROVIDERS: PCP Obstetrics & Gynecology; Visit Provider Advanced Practice Midwife
DX: Z60.3 Acculturation difficulty (principal); Z34.92 Encounter for supervision of normal pregnancy, unspecified, second trimester; O09.529 Supervision of elderly multigravida, unspecified trimester; E66.01 Morbid (severe) obesity due to excess calories; O35.BXX0 Maternal care for other (suspected) fetal abnormality and damage, fetal cardiac anomalies, not applicable or unspecified; O43.199 Other malformation of placenta, unspecified trimester
CPT/HCPCS: 25942

== ENCOUNTER → 2023-07-21 13:29 | Outpatient (BNVA) | payer OTHER, SELFPAY | PROVIDERS: PCP Obstetrics & Gynecology; Visit Provider Advanced Practice Midwife | DX: O09.522 Supervision of elderly multigravida, second trimester (principal); O35.BXX0 Maternal care for other (suspected) fetal abnormality and damage, fetal cardiac anomalies, not applicable or unspecified; O43.192 Other malformation of placenta, second trimester; O99.212 Obesity complicating pregnancy, second trimester; E66.01 Morbid (severe) obesity due to excess calories; Z3A.22 22 weeks gestation of pregnancy; Z60.3 Acculturation difficulty | CPT/HCPCS: 99212 ==

== ENCOUNTER 2023-08-18 13:27 | Outpatient (AMB) | payer OTHER, SELFPAY ==
--- NOTE | 2023-08-18 13:34 | A.OFFVIS_ITS ---
Intake Vital Signs 08/18/23 13:39 Height 5 ft 1 in Weight 228 lb BMI 43.1 BP 110/68 Intake Visit Reasons: CARLOS/Creole Stripper And Printer Required: Yes Stripper And Printer Language: Citizen Of [place] Creole Stripper And Printer Name: Anthony [id number] Accompanied by: Allergies No Known Allergies Allergy (Verified 08/18/23 13:41) Post menopausal: No PFSH Medical History AMA (advanced maternal age) multigravida 35+ Obesity, morbid, BMI 40.0-49.9 Social History Household Members: Spouse and Family Both parents involved: Yes Caregiver staying overnight: No Housing: Apartment Are you a primary day care center director to a significant other at home: No Do you presently have visiting nurse or other home services: No 75 years or older and lives alone: No Alcohol intake: never Patient Tobacco Use Status: Never used Tobacco Agree to transfusion: Yes service: No Current occupational status: unemployed Female Reproductive History Menstrual Age of Menarche: 15 Duration of menses: 3-5 days control method: none Total pregnancies: 4 Full term: 4 Number of Living Children: 4 Date of last pap smear: 06/01/23 (negative) Physical Exam Vital Signs: Last Vital Signs BP 110/68 08/18/23 13:39 BMI result Body Mass Index 43.1 Results AMB Urinalysis, Automated UA Leukoctes 0 Loreto/uL Last Edit by RYAN Molina on 08/18/23 13:53 UA Nitrite Negative Last Edit by RYAN Molina on 08/18/23 13:53 UA Urobilinogen 0 mg/dL Last Edit by RYAN Molina on 08/18/23 13:53 UA Protein 0.5 mg/dL Last Edit by RYAN Molina on 08/18/23 13:53 UA pH 6 Last Edit by RYAN Molina on 08/18/23 13:53 UA Blood 0 Anshu/uL Last Edit by RYAN Molina on 08/18/23 13:53 UA Specific Mes[place] 1.015 Last Edit by RYAN Molina on 08/18/23 13: 53 UA Ketone Negative Last Edit by RYAN Molina on 08/18/23 13:53 UA Bilirubin 0 mg/dL Last Edit by RYAN Molina on 08/18/23 13:53 UA Glucose 0 mg/dL Last Edit by RYAN Molina on 08/18/23 13:53 Results Reviewed Results Reviewed: Laboratory Last Values Urine pH (Auto) 6 08/18/23 13:52 Specific Mesa (Auto) 1.015 08/18/23 13:52 Urine Protein (Auto) 0.5 mg/dL 08/18/23 13:52 Glucose (UA)(Auto) 0 mg/dL 08/18/23 13:52 Urine Ketones (Auto) Negative 08/18/23 13:52 Urine Blood (Auto) 0 Anshu/uL 08/18/23 13:52 Urine Nitrite (Auto) Negative 08/18/23 13:52 Urine Bilirubin (Auto) 0 mg/dL 08/18/23 13:52 Urine Urobilinogen (Auto) 0 mg/dL 08/18/23 13:52 Leukocyte Esterase (Auto) 0 Loreto/uL 08/18/23 13:52 Assessment & Plan Assessment & Plan Orders: Orders AMB Urinalysis Automated Today Z34.92 - Encounter for supervision of normal , unspecified, second trimester Coding
[2023-08-18 13:39] VITALS: BP 110/68; BMI 43.1
--- NOTE | 2023-08-18 14:11 | A.OFFVISPN_ITS ---
Intake Vital Signs 08/18/23 13:39 Height 5 ft 1 in Weight 228 lb BMI 43.1 BP 110/68 Intake Visit Reasons: CARLOS/Creole Intake Note: The patient agreed to use of a medical interpreter during this encounter. Scribed for GELACIO Julian by Mary Soria medical interpreter, on 08/18/2023 at 2:15 pm EST Baggage Security Checker Required: Yes Baggage Security Checker Language: Palauan Creole Accompanied by: Allergies No Known Allergies Allergy (Verified 08/18/23 13:41) Is last menstrual period known: No Post menopausal: No Patient : Yes PFS Medical History AMA (advanced maternal age) multigravida 35+ Obesity, morbid, BMI 40.0-49.9 Social History Household Members: Spouse and Family Both parents involved: Yes Caregiver staying overnight: No Housing: Apartment Are you a primary assurance services manager health care to a significant other at home: No Do you presently have visiting nurse or other home services: No 75 years or older and lives alone: No Alcohol intake: never Patient Tobacco Use Status: Never used Tobacco Agree to transfusion: Yes service: No Current occupational status: unemployed Female Reproductive History Menstrual Age of Menarche: 15 Duration of menses: 3-5 days control method: none Total pregnancies: 4 Full term: 4 Number of Living Children: 4 Date of last pap smear: 06/01/23 (negative) History History 4 Elective abortions 0 Para 4 Spontaneous abortions 0 Hx # Term Pregnancies 4 Ectopic pregnancies 0 Hx # Pregnancies 0 Multiple births 0 Past Pregnancies Del. Date GA/Weeks Outcome Route Wt Inf Gender Labor Cleo Anesthesia Location Provider Complicate 04/29/06 40 live - full term Male [facility] none 10/26/09 40 live - full term Male [facility] none 12/23/11 40 live - full term Male [facility] none 06/22/13 40 live - full term Female [facility] none Questionnaire History History : 4 Visit SAM Calculator Estimated Delivery Date Method Current WG Current Estimate 11/20/23 Ultrasound #1 26w 4d Expected Delivery Route/Plan Specific Issues/Plans 37yr. old ? ? G5 ?P4004 ? ? ?LMP: EDC:11/20/23 ?by 9 w u/s ? ? ?Blood type: A pos Problem List: 1. recent refugee to [place] from [facility] via [place], speaks Palauan Creole Vincentian, and Sierra Leonean and Khmer 2. AMA 3. BMI 42. Needs AP testing 3rd trimester NST/BPP 4. Marginal placenta- needs 3rd trimester growth check- 32 wks... Testing: Panorama/and or First Tri screen: ? ?risk too late,,,,07/21/23-patient eventually had tseting after genetic screening visit at [facility] on 07/04/23 and then anatomy scan was rescheduled to 07/06/2023. NT scan: AFP:..see RN note FAS: pending 07/04-done 07/06/2023 results to chart later. Echogenic focus noted in heart no cardiac anomalies noted. Also marginal cord insertion noted plan for growth scan at 32 weeks. Glucose: early n/a? 28 wk glucose: ? CBC 1st Tri: 12.7/38.4/306? 28 wk. CBC: GBS: Vaccinations: Flu: informed available in August Covid: Tdap: Education/Services WIC: enrolled Social Supports/Stressors: Living situation: living in fpc in [place] in own apartment with family( and other children). Supports:? Work/school: (children are attending school in [place] and like it-07/21/23) Transportation: unclear but states she has transportation Labor, and Concerns: Labor support: Plan: Hx of normal births.... Infant Feeding Plans: uncertain control: wants no more children after this 1 but does not have specific plan at this time 06/23/23- continue to explore.... OB Visit Log Initial Weight: 189 lb 9.561 oz Date -?-?-?-?-?-?-?-?-?-?-?-?- EGA Weight Gest Week Fundal Ht Present FHR move Efface % Edema BP PrePreg We Weight GTT -?-?-?-?-?-?-?-?-?--?-?-?- Glucose LV Protein Blood Type 06/13/23 -?-?-?-?-?-?-?-?-?-?-?-?- 17w 1d 222 lb 8 oz (+32 lb 14.439 oz) 222 lb 8 oz -?-?-?-?-?-?-?-?-?-?-?-?- 06/23/23 -?-?-?-?-?-?-?-?-?-?-?-?- 18w 4d 225 lb (+35 lb 6.439 oz) 18 140 active 122/82 225 lb -?-?-?-?-?-?-?-?-?-?-?-?- 07/21/23 -?-?-?-?-?-?-?-?-?-?-?-?- 22w 4d 225 lb (+35 lb 6.439 oz) 25 140 active 120/72 225 lb -?-?-?-?-?-?-?-?-?-?-?-?- 08/18/23 -?-?-?-?-?-?-?-?-?-?-?-?- 26w 4d 228 lb (+38 lb 6.439 oz) 27 150 active 110/68 228 lb -?-?-?-?-?-?-?-?-?-?-?-?- Notes Visit Date: 08/18/23 Last Updated by: Edwige Lynch CNM Note author: Edwige Lynch CNM/Mary Soria, medical interpreter 26.4 wk CARLOS. Taking PNV. Good FM. Denies LOF, VB or abd pain. Good appetite and stays well hydrated. Partner at visit. Reports discomfort/pressure when sitting down and standing, relieved with laying down. Discussed: PTL-LOF, VB, abd pain, ctx and when to call for further evaluation. PEC - headaches: not resolved with 2 regular strength Tylenol doses, visual disturbances warnings and when to call for further evaluation.? FKC: have something to eat and drink, should have 5 kicks in 1hr or 10 kicks in 2 hrs, if not call immediately for evaluation. Staying well hydrated, drink 8-10 glasses of water per day. Plan to do GTT at next visit. RTO in 2 weeks. Visit Date: 07/21/23 Last Updated by: Dorota Cherry CNM Patient is here for visit with her . Translation was done more effectively today with a service dismantler available on tablet identification of which is noted by the medical receptionist medical assistant. The patient did not make much eye contact for until the end of the visit and had her head hung down and appeared lethargic and when I asked her about appearing tired she said her upper back hurt. She says that when she lays in a certain position it feels better and also it feels better when she lets of warm shower run on it. I discussed posture and trying to help hold herself in a better way to not make her back pain worse, and also suggested perhaps her might want to give her a massage and they laughed and he said that he does.. The patient was worried because she said that they told her there was something that they saw on the baby's head and I reviewed the ultrasound with them that showed the echogenic focus that was noted and also the marginal cord insertion. She has been praying every day for her baby because her other children are okay and she is very much hoping this baby will be okay to. Her baby is very active and this is reassuring to her. I had her record the baby's heart rate so they can share this with their other children and they enjoyed this. I reviewed the negative panoramic screen that showed that the fetus at is at low risk for trisomy 21 and 18 and 13. She says she is eating well and in fact is very hungry and all she can think gives eating after this visit. Her legs appeared slightly edematous to me but she says they are not and that is how they always look. They are still living in [place] at the same place but the children are in school in [place] because when they 1st came they were in a hotel there and the children like the school so that is where they go to school. They are happy that they are having a boy . Her next visit can be in 4 weeks and I also told her that in about 6 weeks she will be getting more lab work to check on the blood sugar to screen for d iabetes ; And also that in around 32 weeks 10 weeks from now we will be requesting another ultrasound at [facility] to check on growth because of the marginal cord insertion. Visit Date: 06/23/23 Last Updated by: Dorota Cherry CNM Patient presents to visit which is scheduled as an OB PE however she has signed in later than appointment time though she says she arrived on time.. Patient speaks Vincentian Palauan Creole. It developed at the very end of the visit that she also speaks Sierra Leonean which turned out to be a better way of communication then using the translation tablet. Patient appeared annoyed during the visit and it was not until she volunteered that she spoke Sierra Leonean at the end and I was able to communicate with her in Sierra Leonean that she smiled and she and her relaxed and were able to communicate more freely. They live in a fpc they have their own apartment there are other families there from [facility] but they all have their own apartments. She says she does have transportation to get to [facility] for the ultrasound and that took quite a bit of translation to establish. I did let her know that that is going to be where she is going to give as well in reviewing the chart while she today she is scheduled for new OB PE visit it develops that when she saw Dr. Pleitez on 05/30/2023 he did a complete exam for her on that day including Pap smear and testing for STIs which were all negative. She has had all of her blood work and it was all negative and she is not anemic and because she has no history of gestational diabetes that was not necessary to be done. She has her OB anatomy survey ultrasound at [facility] and she has the address written down in her wallet and she is going there on July 04. We will see her again in 4 weeks. She tells me she is eating well and getting plenty of protein and vegetables. Neither she nor her had other questions or concerns today for this visit. I did acknowledge that it must be very challenging to be in a new country and when she shared that she spoke Sierra Leonean we were able to get much further. I will send her vitamin prescription by computer to [facility] and explained to her that there is no written prescription and that is how she will get the prescription. additionally she shared that she delivered all of her children in the hospital in [facility] and she had no difficulty. And I also inquired as to what her future plans for having babies was and she said that she is having no more babies after this 1 and that she is done having babies after this. I asked her what her plan was and she said her plan is no more babies and I said we will talk about this further in future visits so that we workout exactly how she will accomplish this but she is very clear that she does not want anymore children after this 1. 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 LMP unknown. US on 04/18/23 at 9w1d gives SAM of 11/20/23 and GA today of 17w1d. She has moved here from [facility]. BMI is 42. This was unplanned but the couple is happy. Pt saw Dr Pleitez for consult and has already had her labs done. She is scheduled for OB PE 06/23/23 with Dorota and [place] [facility] [place] @ 0830. She had an appt for genetic counseling [place] [facility] [place], report of visit is pending. Pt was given a folder in Sierra Leonean as she does speak the language somewhat but her first language is Palauan Creole. We reviewed danger signs, MD coverage 12/06 and how to reach MD after hours. She is taking her PNV daily and has no c/o at this time. AFP was ordered by Dr Pleitez but the result was for tumor marker and not . Will add orde r for AFP maternal serum and send the ordering worksheet once it is completed to Chemistry. Pt was too late for NT US but is scheduled for FAS as noted above. Pt will go to lab in the next couple of days. We reviewed first trimester education. Bry has no further questions at this time. She verbalizes understanding and agrees with plan. Results AMB Urinalysis, Automated UA Leukoctes 0 Loreto/uL Last Edit by RYAN Molina on 08/18/23 13:53 UA Nitrite Negative Last Edit by RYAN Molina on 08/18/23 13:53 UA Urobilinogen 0 mg/dL Last Edit by RYAN Molina on 08/18/23 13:53 UA Protein 0.5 mg/dL Last Edit by Deepthi Rizodro, RMA on 08/18/23 13:53 UA pH 6 Last Edit by Deepthi Rizodro, RMA on 08/18/23 13:53 UA Blood 0 Anshu/uL Last Edit by Aidaleksander Rizodro, RMA on 08/18/23 13:53 UA Specific Walton 1.015 Last Edit by Deepthi Rizodro, RMA on 08/18/23 13: 53 UA Ketone Negative Last Edit by Aidaleksander Rizodro, RMA on 08/18/23 13:53 UA Bilirubin 0 mg/dL Last Edit by Deepthi Rizodro, RMA on 08/18/23 13:53 UA Glucose 0 mg/dL Last Edit by Deepthi Fishmanjandro, RMA on 08/18/23 13:53 Results Reviewed Results Reviewed: Laboratory Last Values Urine pH (Auto) 6 08/18/23 13:52 Specific Walton (Auto) 1.015 08/18/23 13:52 Urine Protein (Auto) 0.5 mg/dL 08/18/23 13:52 Glucose (UA)(Auto) 0 mg/dL 08/18/23 13:52 Urine Ketones (Auto) Negative 08/18/23 13:52 Urine Blood (Auto) 0 Anshu/uL 08/18/23 13:52 Urine Nitrite (Auto) Negative 08/18/23 13:52 Urine Bilirubin (Auto) 0 mg/dL 08/18/23 13:52 Urine Urobilinogen (Auto) 0 mg/dL 08/18/23 13:52 Leukocyte Esterase (Auto) 0 Loreto/uL 08/18/23 13:52 Assessment & Plan Assessment & Plan (1) Supervision of normal in second trimester: Code(s): Z34.92 - Encounter for supervision of normal , unspecified, second trimester Category: Medical (2) AMA (advanced maternal age) multigravida 35+: Code(s): O09.529 - Supervision of elderly multigravida, unspecified trimester Category: Medical (3) Large for dates affecting management of mother: Code(s): O36.60X0 - Maternal care for excessive growth, unspecified trimester, not applicable or unspecified Orders: Orders AMB Urinalysis Automated Today Z34.92 - Encounter for supervision of normal , unspecified, second trimester Coding Level of Care Code [place] Diagnoses Supervision of normal in second trimester Z34.92 AMA (advanced maternal age) multigravida 35+ O09.529 Large for dates affecting management of mother O36.60X0
== END 2023-08-18 14:29 | disposition home or self-care (01) ==
LOC: HO.HWS 13:27
PROVIDERS: PCP Obstetrics & Gynecology; Visit Provider Advanced Practice Midwife
DX: Z34.92 Encounter for supervision of normal pregnancy, unspecified, second trimester (principal); O09.529 Supervision of elderly multigravida, unspecified trimester; O36.60X0 Maternal care for excessive fetal growth, unspecified trimester, not applicable or unspecified
CPT/HCPCS: 25942

== ENCOUNTER → 2023-08-18 13:27 | Outpatient (BNVA) | payer OTHER, SELFPAY | PROVIDERS: PCP Obstetrics & Gynecology; Visit Provider Advanced Practice Midwife | DX: O09.522 Supervision of elderly multigravida, second trimester (principal); O36.62X0 Maternal care for excessive fetal growth, second trimester, not applicable or unspecified; Z3A.26 26 weeks gestation of pregnancy | CPT/HCPCS: 81003; 99212 ==

== ENCOUNTER 2023-08-29 13:09 | Outpatient (AMB) | payer OTHER, SELFPAY ==
[2023-08-29 13:31] VITALS: BP 100/70; BMI 42.7
--- NOTE | 2023-08-29 13:31 | MHC.OFFVISPN ---
Intake Vital Signs 08/29/23 13:31 Height 5 ft 1 in Weight 226 lb BMI 42.7 BP 100/70 Intake Visit Reasons: CARLOS Intake Note: right Lower abdominal pain and feeling heavy Dental Technology Advisor Required: Yes Dental Technology Advisor Language: Georgian Cremichele Dental Technology Advisor Name: Nicholas [id number] Accompanied by: Allergies No Known Allergies Allergy (Verified 08/29/23 13:32) Is last menstrual period known: No Post menopausal: No Patient : Yes PFSH Medical History AMA (advanced maternal age) multigravida 35+ Obesity, morbid, BMI 40.0-49.9 Social History Household Members: Spouse and Family Both parents involved: Yes Caregiver staying overnight: No Housing: Apartment Are you a primary care director rn to a significant other at home: No Do you presently have visiting nurse or other home services: No 75 years or older and lives alone: No Alcohol intake: never Patient Tobacco Use Status: Never used Tobacco Agree to transfusion: Yes Patient : Yes service: No Current occupational status: unemployed Female Reproductive History Menstrual Age of Menarche: 15 Duration of menses: 3-5 days control method: none Total pregnancies: 5 Full term: 4 Number of Living Children: 4 Date of last pap smear: 06/01/23 (negative) History History 5 Elective abortions 0 Para 4 Spontaneous abortions 0 Hx # Term Pregnancies 4 Ectopic pregnancies 0 Hx # Pregnancies 0 Multiple births 0 Past Pregnancies Del. Date GA/Weeks Outcome Route Wt Inf Gender Labor Cleo Anesthesia Location Provider Complicate 04/29/06 40 live - full term Male [facility] none 10/26/09 40 live - full term Male [facility] none 12/23/11 40 live - full term Male [facility] none 06/22/13 40 live - full term Female [facility] none Questionnaire History History : 5 Visit SAM Calculator Estimated Delivery Date Method Current WG Current Estimate 11/20/23 Ultrasound #1 28w 1d Expected Delivery Route/Plan Specific Issues/Plans 37yr. old ? ? G5 ?P4004 ? ? ?LMP: EDC:1/1/24 ?by 9 w u/s ? ? ?Blood type: A pos Problem List: 1. recent refugee to [place] from [facility] via [place], speaks Georgian Creole Filipino, and Beninese and Setswana 2. AMA 3. BMI 42. Needs AP testing 3rd trimester NST/BPP 4. Marginal placenta- needs 3rd trimester growth check- 32 wks...(ordered and as of yet to be scheduled... rn to call p 08/29/23.) Testing: Panorama/and or First Tri screen: ? ?risk too late,,,,07/21/23-patient eventually had tseting after genetic screening visit at [facility] on 07/04/23 and then anatomy scan was rescheduled to 07/06/2023. NT scan: AFP:..see RN note FAS: pending 07/04-done 07/06/2023 results to chart later. Echogenic focus noted in heart no cardiac anomalies noted. Also marginal cord insertion noted plan for growth scan at 32 weeks. Glucose: early n/a? 28 wk glucose: ? CBC 1st Tri: 12.7/38.4/306? 28 wk. CBC: GBS: Vaccinations: Flu: informed available in August... Covid: Tdap: Education/Services WIC: enrolled Social Supports/Stressors: Living situation: living in correction in [place] in own apartment with family( and other children). Supports:? Work/school: (children are attending school in [place] and like it-07/21/23) Transportation: unclear but states she has transportation Labor, and Concerns: Labor support: Plan: Hx of normal births.... Infant Feeding Plans: uncertain control: wants no more children after this 1 but does not have specific plan at this time 06/23/23- continue to explore.... Reviewed options in detail 08/29/2023. At this point thinks she will want a Nexplanon, even with side effects of weight gain and bleeding; declines IU S an IUD and tubal ligation and Depo-Provera and pills. OB Visit Log Initial Weight: 189 lb 9.561 oz Date <del>?</del> EGA Weight Gest Week Fundal Ht Present FHR move Efface % Edema BP PrePreg We Weight GTT <del>?</del> Glucose LV Protein Blood Type 06/13/23 <del>?</del> 17w 1d 222 lb 8 oz (+32 lb 14.439 oz) 222 lb 8 oz <del>?</del> 06/23/23 <del>?</del> 18w 4d 225 lb (+35 lb 6.439 oz) 18 140 active 122/82 225 lb <del>?</del> 07/21/23 <del>?</del> 22w 4d 225 lb (+35 lb 6.439 oz) 25 140 active 120/72 225 lb <del>?</del> 08/18/23 <del>?</del> 26w 4d 228 lb (+38 lb 6.439 oz) 27 150 active 110/68 228 lb <del>?</del> 08/29/23 <del>?</del> 28w 1d 226 lb (+36 lb 6.439 oz) 30 150 active 100/70 226 lb <del>?</del> Notes Visit Date: 08/29/23 Last Updated by: Dorota Cherry CNM Is here with her for her visit she could not void when the MA asked her to so the urine specimen was missed. She did void afterwards but that was not obtained. She is feeling pressure. She has some pain in her right lower quadrant, but it is really only when she is sitting if she is walking or resting lying down it does not hurt her she does not think it has to do with the baby's movement the baby's moving normally for her-she thinks it is a normal cramp. Did discuss the ligaments that get stretched in . Her abdomen palpated soft throughout the long visit. The ultrasound has not yet been scheduled for followup. Please see the ultrasound from [facility] which is not filed under ultrasounds but under in coming document dated 07/07/2023 performed 07/06/2023). She had panoramic testing done because of increased risk of Downs which was negative. Call placed to RNs to work on scheduling the ultrasound. Patient has not yet gone for her glucose testing and cbc she can go for that at any time. I asked her if she wanted to go today but she said no but then she later said she thought she was post to get it done today in the end she decided that she will come on Monday for that I told her it would be 3 tests,-The cbc the glucose testing in the syphilis testing. She was given the edinburgh EPDS form to fill out in Filipino, and this was discussed during the visit but she did not want to fill it out while she was here and wanted to take at home and fill it out and bring it back. I reminded her it was for us to know how she was doing and it was not for somebody else to fill out with her. She said she would do it herself and bring it back at her next visit. She took the form home Additionally I raised the issue of control for after and she had told me and she reiterated that she did not want to have any more babies after this and this baby was not planned E either. I reviewed long-term methods such as the Mirena IUD the ParaGard IUD in broad categories with their methods of action and typical side effects of bleeding and menstrual changes. I also reviewed tubal ligation but she would need to sign consent form for that and it would need to be discussed as well possibly at [facility] if that was an option there. She is not at all interested in that because of the possibility of the risks involved in surgery. She also is not interested in any of the IUDs but she wanted either shots or pills or the thing in her arm that she could use for 5 years I told her that the thing in the arm was for 3 years here in this country and it was call the Nexplanon and it had some side effects on bleeding and how women felt as well as weight gain. She said she would put up with those and that was probably going to be her choice. This summary was actually a much longer discussion with translation. She also intends to breastfeed until she can go back to work and then she will give the baby the bottle. I told her she will be called soon about the ultrasound which is for increased echogenic focus and marginal insertion. We will see her again in 2 weeks. Visit Date: 08/18/23 Last Updated by: Edwige Lynch CNM Note author: Edwige Lynch CNM/Mary Soria, district medical examiner 26.4 wk CARLOS. Taking PNV. Good FM. Denies LOF, VB or abd pain. Good appetite and stays well hydrated. Partner at visit. Reports discomfort/pressure when sitting down and standing, relieved with laying down. Discussed: PTL-LOF, VB, abd pain, ctx and when to call for further evaluation. PEC - headaches: not resolved with 2 regular strength Tylenol doses, visual disturbances warnings and when to call for further evaluation.? FKC: have something to eat and drink, should have 5 kicks in 1hr or 10 kicks in 2 hrs, if not call immediately for evaluation. Staying well hydrated, drink 8-10 glasses of water per day. Plan to do GTT at next visit. RTO in 2 weeks. Visit Date: 07/21/23 Last Updated by: Dorota Cherry CNM Patient is here for visit with her . Translation was done more effectively today with a insulation blower available on tablet identification of which is noted by the medical billing coordinator. The patient did not make much eye contact for until the end of the visit and had her head hung down and appeared lethargic and when I asked her about appearing tired she said her upper back hurt. She says that when she lays in a certain position it feels better and also it feels better when she lets of warm shower run on it. I discussed posture and trying to help hold herself in a better way to not make her back pain worse, and also suggested perhaps her might want to give her a massage and they laughed and he said that he does.. The patient was worried because she said that they told her there was something that they saw on the baby's head and I reviewed the ultrasound with them that showed the echogenic focus that was noted and also the marginal cord insertion. She has been praying every day for her baby because her other children are okay and she is very much hoping this baby will be okay to. Her baby is very active and this is reassuring to her. I had her record the baby's heart rate so they can share this with their other children and they enjoyed this. I reviewed the negative panoramic screen that showed that the fetus at is at low risk for trisomy 21 and 18 and 13. She says she is eating well and in fact is very hungry and all she can think gives eating after this visit. Her legs appeared slightly edematous to me but she says they are not and that is how they always look. They are still living in [place] at the same place but the children are in school in [place] because when they 1st came they were in a hotel there and the children like the school so that is where they go to school. They are happy that they are having a boy . Her next visit can be in 4 weeks and I also told her that in about 6 weeks she will be getting more lab work to check on the blood sugar to screen for diabetes ; And also that in around 32 weeks 10 weeks from now we will be requesting another ultrasound at [facility] to check on growth because of the marginal cord insertion. Visit Date: 06/23/23 Last Updated by: Dorota Cherry CNM Patient presents to visit which is scheduled as an OB PE however she has signed in later than appointment time though she says she arrived on time.. Patient speaks Filipino Georgian Creole. It developed at the very end of the visit that she also speaks Beninese which turned out to be a better way of communication then using the translation tablet. Patient appeared annoyed during the visit and it was not until she volunteered that she spoke Beninese at the end and I was able to communicate with her in Beninese that she smiled and she and her relaxed and were able to communicate more freely. They live in a correction they have their own apartment there are other families there from [facility] but they all have their own apartments. She says she does have transportation to get to [facility] for the ultrasound and that took quite a bit of translation to establish. I did let her know that that is going to be where she is going to give as well in reviewing the chart while she today she is scheduled for new OB PE visit it develops that when she saw Dr. Pleitez on 05/30/2023 he did a complete exam for her on that day including Pap smear and testing for STIs which were all negative. She has had all of her blood work and it was all negative and she is not anemic and because she has no history of gestational diabetes that was not necessary to be done. She has her OB anatomy survey ultrasound at [facility] and she has the address written down in her wallet and she is going there on July 04. We will see her again in 4 weeks. She tells me she is eating well and getting plenty of protein and vegetables. Neither she nor her had other questions or concerns today for this visit. I did acknowledge that it must be very challenging to be in a new country and when she shared that she spoke Beninese we were able to get much further. I will send her vitamin prescription by computer to [facility] and explained to her that there is no written prescription and that is how she will get the prescription. additionally she shared that she delivered all of her children in the hospital in [facility] and she had no difficulty. And I also inquired as to what her future plans for having babies was and she said that she is having no more babies after this 1 and that she is done having babies after this. I asked her what her plan was and she said her plan is no more babies and I said we will talk about this further in future visits so that we workout exactly how she will accomplish this but she is very clear that she does not want anymore children after this 1. 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 LMP unknown. US on 04/18/23 at 9w1d gives SAM of 11/20/23 and GA today of 17w1d. She has moved here from [facility]. BMI is 42. This was unplanned but the couple is happy. Pt saw Dr Pleitez for consult and has already had her labs done. She is scheduled for OB PE 06/23/23 with Dorota and [place] [facility] [place] @ 08[place]. She had an appt for [place] [facility] [place], report of visit is pending. Pt was given a folder in Beninese as she does speak the language somewhat but her first language is Georgian Creole. We reviewed danger signs, MD coverage 12/06 and how to reach MD after hours. She is taking her PNV daily and has no c/o at this time. AFP was ordered by Dr Pleitez but the result was for tumor marker and not . Will add order for AFP maternal serum and send the ordering worksheet once it is completed to Chemistry. Pt was too late for NT US but is scheduled for FAS as noted above. Pt will go to lab in the next couple of days. We reviewed first trimester education. Bry has no further questions at this time. She verbalizes understanding and agrees with plan. Assessment & Plan Assessment & Plan (1) Marginal insertion of umbilical cord affecting management of mother: Code(s): O43.199 - Other malformation of placenta, unspecified trimester Category: Medical (2) Echogenic focus of heart of fetus affecting antepartum care of mother: Code(s): O35.BXX0 - Maternal care for other (suspected) abnormality and damage, cardiac anomalies, not applicable or unspecified Category: Medical (3) Immigrant with language difficulty: Code(s): Z60.3 - Acculturation difficulty Category: Social Hx (4) AMA (advanced maternal age) multigravida 35+: Code(s): O09.529 - Supervision of elderly multigravida, unspecified trimester Category: Medical (5) : Comment: Advanced maternal age Code(s): Z34.90 - Encounter for supervision of normal , unspecified, unspecified trimester Category: Medical (6) Encounter for supervision of normal in third trimester: Code(s): Z34.93 - Encounter for supervision of normal , unspecified, third trimester Category: Medical Coding Level of Care Code [place] Diagnoses Marginal insertion of umbilical cord affecting management of mother O43.199 Echogenic focus of heart of fetus affecting antepartum care of mother O35.BXX0 Immigrant with language difficulty Z60.3 AMA (advanced maternal age) multigravida 35+ O09.529 Z34.90 Encounter for supervision of normal in third trimester Z34.93
== END 2023-08-29 14:31 | disposition home or self-care (01) ==
LOC: HO.HWSM 13:09
PROVIDERS: PCP Obstetrics & Gynecology; Visit Provider Advanced Practice Midwife
DX: O43.199 Other malformation of placenta, unspecified trimester (principal); O35.BXX0 Maternal care for other (suspected) fetal abnormality and damage, fetal cardiac anomalies, not applicable or unspecified; Z60.3 Acculturation difficulty; O09.529 Supervision of elderly multigravida, unspecified trimester; Z34.90 Encounter for supervision of normal pregnancy, unspecified, unspecified trimester; Z34.93 Encounter for supervision of normal pregnancy, unspecified, third trimester
CPT/HCPCS: 25942

== ENCOUNTER → 2023-08-29 13:09 | Outpatient (BNVA) | payer OTHER, SELFPAY | PROVIDERS: PCP Obstetrics & Gynecology; Visit Provider Advanced Practice Midwife | DX: O09.523 Supervision of elderly multigravida, third trimester (principal); O43.193 Other malformation of placenta, third trimester; O35.BXX0 Maternal care for other (suspected) fetal abnormality and damage, fetal cardiac anomalies, not applicable or unspecified; Z60.3 Acculturation difficulty; Z3A.28 28 weeks gestation of pregnancy | CPT/HCPCS: 99212 ==

== ENCOUNTER 2023-09-11 12:32 | Outpatient (REF) | payer OTHER, SELFPAY ==
[2023-09-11 14:24] LABS: Hematocrit 38.1 % (37.0-47.0); Hemoglobin 12.4 g/dl (12.0-16.0); Mean Corpuscular HGB Conc 32.5 g/dl (31.0-35.0); Mean Corpuscular Hemoglobin 29.8 pg (27.0-33.0); Mean Corpuscular Volume 91.6 fL (80.0-98.0); Mean Platelet Volume 9.5 fL (9.4-12.3); Platelet Count 315 X10*3/uL (160-400); Red Blood Count 4.16 X10*6/uL (4.20-5.50); Red Cell Distribution Width 13.4 % (11.0-16.0); White Blood Count 10.1 X10*3/uL (4.8-10.8)
[2023-09-11 14:40] LABS: Glucose 1 Hour PP 50gm Dose 101 mg/dL (60-140)
[2023-09-11 15:03] LABS: Syphilis Screen Nonreactive (Nonreactive)
== END 2023-09-11 12:33 | disposition home or self-care (01) ==
LOC: HO.LAB 12:32
PROVIDERS: Visit Provider Advanced Practice Midwife
DX: O09.512 Supervision of elderly primigravida, second trimester (principal); Z3A.00 Weeks of gestation of pregnancy not specified
CPT/HCPCS: 36415; 82950; 85027; 86780

== ENCOUNTER 2023-09-13 11:19 | Outpatient (AMB) | payer OTHER, SELFPAY ==
--- NOTE | 2023-09-13 12:00 | A.OFFVISPN_ITS ---
Intake Vital Signs 09/13/23 12:02 Height 5 ft 1 in Weight 226 lb BMI 42.7 BP 100/66 Intake Visit Reasons: CARLOS Intake Note: The patient agreed to use of a medical office scheduler during this encounter. Scribed for GELACIO Julian by Elena Braxton medical office scheduler, on 09/13/2023 at 12:04 pm,, EST. Final Dressing Cutter Required: Yes Final Dressing Cutter Language: Citizen [place] Final Dressing Cutter Name: Livan [id number] Information Interpreted: non-clinical & clinical Allergies No Known Allergies Allergy (Verified 09/13/23 12:01) Patient : Yes [facility] Medical History AMA (advanced maternal age) multigravida 35+ Obesity, morbid, BMI 40.0-49.9 Social History Household Members: Spouse and Family Both parents involved: Yes Caregiver staying overnight: No Housing: Apartment Are you a primary wild animal caretaker to a significant other at home: No Do you presently have visiting nurse or other home services: No 75 years or older and lives alone: No Alcohol intake: never Patient Tobacco Use Status: Never used Tobacco Agree to transfusion: Yes service: No Current occupational status: unemployed Female Reproductive History Menstrual Age of Menarche: 15 History History 2 5 Elective abortions 0 Para 4 Spontaneous abortions 0 Hx # Term Pregnancies 4 Ectopic pregnancies 0 Hx # Pregnancies 0 Multiple births 0 Past Pregnancies Del. Date GA/Weeks Outcome Route Wt Inf Gender Labor Cleo Anesthesia Location Provider Complicate 04/29/06 40 live - full term Male [facility] none 10/26/09 40 live - full term Male [facility] none 12/23/11 40 live - full term Male [facility] none 06/22/13 40 live - full term Female [facility] none Visit SAM Calculator Estimated Delivery Date Method Current WG Current Estimate 11/20/23 Ultrasound #1 30w 2d Expected Delivery Route/Plan Specific Issues/Plans 37yr. old ? ? G5 ?P4004 ? ? ?LMP: EDC:11/20/23 ?by 9 w u/s ? ? ?Blood type: A pos Problem List: 1. recent refugee to [place] from [facility] via [place], speaks Citizen [place] Creole Russian, and Portuguese and American 2. AMA 3. BMI 42. Needs AP testing 3rd trimester NST/BPP 4. Marginal placenta- needs 3rd trimester growth check- 32 wks...(ordered and as of yet to be scheduled... rn to call p 08/29/23.) Testing: Panorama/and or First Tri screen: ? ?risk too late,,,,07/21/23-patient eventually had tseting after genetic screening visit at [facility] on 07/04/23 and then anatomy scan was rescheduled to 07/06/2023. NT scan: AFP:..see RN note FAS: pending 07/04-done 07/06/2023 results to chart later. Echogenic focus noted in heart no cardiac anomalies noted. Also marginal cord insertion noted plan for growth scan at 32 weeks. Glucose: early n/a? 28 wk glucose: ?101 CBC 1st Tri: 12.7/38.4/306? 28 wk. CBC: 12.4.38.1 GBS: Vaccinations: Flu: informed available in August... Covid: Tdap: 09/13/23 Education/Services WIC: enrolled Social Supports/Stressors: Living situation: living in group home in [place] in own apartment with family( and other children). Supports:? Work/school: (children are attending school in [place] and like it-07/21/23) Transportation: unclear but states she has transportation Labor, and Concerns: Labor support: Plan: Hx of normal births.... Infant Feeding Plans: uncertain control: wants no more children after this 1 but does not have specific plan at this time 06/23/23- continue to explore.... Reviewed options in detail 08/29/2023. At this point thinks she will want a Nexplanon, even with side effects of weight gain and bleeding; declines IU S an IUD and tubal ligation and Depo-Provera and pills. OB Visit Log Initial Weight: 189 lb 9.561 oz Date -?-?-?-?-?-?-?-?-?-?-?-?- EGA Weight Gest Week Fundal Ht Present FHR move Efface % Edema BP PrePreg We Weight GTT -?-?-?-?-?-?-?-?-?-?-?-?- Glucose LV Protein Blood Type 06/13/23 -?-?-?-?-?-?-?-?-?-?-?-?- 17w 1d 222 lb 8 oz (+32 lb 14.439 oz) 222 lb 8 oz -?-?-?-?-?-?-?-?-?-?-?-?- 06/23/23 -?-?-?-?-?-?-?-?-?-?-?-?- 18w 4d 225 lb (+35 lb 6.439 oz) 18 140 active 122/82 225 lb -?-?-?-?-?-?-?-?-?-?-?-?- 07/21/23 -?-?-?-?-?-?-?-?-?-?-?-?- 22w 4d 225 lb (+35 lb 6.439 oz) 25 140 active 120/72 225 lb -?-?-?-?-?-?-?-?-?-?-?-?- 08/18/23 -?-?--?-?-?-?-?-?-?-?-?-?- 26w 4d 228 lb (+38 lb 6.439 oz) 27 150 active 110/68 228 lb -?-?-?-?-?-?-?-?-?-?-?-?- 08/29/23 -?-?-?-?-?-?-?-?-?-?-?-?- 28w 1d 226 lb (+36 lb 6.439 oz) 30 150 active 100/70 226 lb -?-?-?-?-?-?-?-?-?-?-?-?- 09/13/23 -?-?-?-?-?-?-?-?-?-?-?-?- 30w 2d 226 lb (+36 lb 6.439 oz) 32 140 active 100/66 226 lb -?-?-?-?-?-?-?-?-?-?-?-?- Notes Visit Date: 09/13/23 Last Updated by: Elena Braxton Note author: Edwige Lynch CNM/Elena Braxton, medical office scheduler. 30.2 wk CARLOS. Not taking PNV-she reports was not ever on them. Good FM. Denies LOF, VB. Confirms lower abdominal pressure when standing, resolved with rest. Doing well with no concerns. Good appetite and stays well hydrated. States she drinks more then she eats. Confirms lower back pain. She reports stretching at home to help with pain relief. She reports her last ultrasound was at 5 months in 05/2023. She states she had another ultrasound scheduled for today ( [facility] at 9:30 am) but did not attend. She had recent blood work performed recently and was concerned today?s appointment was due to irregular results. Discussed: PTL-LOF, VB, abd pain, ctx and when to call for further evaluation. PEC - headaches: not resolved with 2 regular strength Tylenol doses, visual disturbances warnings and when to call for further evaluation. FKC: have something to eat and drink, should have 5 kicks in 1hr or 10 kicks in 2 hrs, if not call immediately for evaluation. Staying well hydrated, drink 8-10 glasses of water per day. Prescription for vitamins was sent to the pharmacy today. She was supplied with a 3 months supply for the next year. I offered the patient a referral to physical therapy to help with stretching and exercises to help with lower back pain. At this time she would like to defer. I did educated her that she is able to apply a heating pad. Follow up will be in 2 weeks. The office will work on rescheduling the ultrasound. Start AP testing for 32 wks. Of note: Patient confirms yesterday on the phone she was going to attend her appointment for the ultrasound at [facility]. When asked why she did not attend she stated she forgot. Visit Date: 08/29/23 Last Updated by: Dorota Cherry CNM Is here with her for her visit she could not void when the MA asked her to so the urine specimen was missed. She did void afterwards but that was not obtained. She is feeling pressure. She has some pain in her right lower quadrant, but it is really only when she is sitting if she is walking or resting lying down it does not hurt her she does not think it has to do with the baby's movement the baby's moving normally for her-she thinks it is a normal cramp. Did discuss the ligaments that get stretched in . Her abdomen palpated soft throughout the long visit. The ultrasound has not yet been scheduled for followup. Please see the ultrasound from [facility] which is not filed under ultrasounds but under in coming document dated 07/07/2023 performed 07/06/2023). She had panoramic testing done because of increased risk of Downs which was negative. Call placed to RNs to work on scheduling the ultrasound. Patient has not yet gone for her glucose testing and cbc she can go for th at at any time. I asked her if she wanted to go today but she said no but then she later said she thought she was post to get it done today in the end she decided that she will come on Monday for that I told her it would be 3 tests,- The cbc the glucose testing in the syphilis testing. She was given the edinburgh EPDS form to fill out in Russian, and this was discussed during the visit but she did not want to fill it out while she was here and wanted to take at home and fill it out and bring it back. I reminded her it was for us to know how she was doing and it was not for somebody else to fill out with her. She said she would do it herself and bring it back at her next visit. She took the form home Additionally I raised the issue of control for after and she had told me and she reiterated that she did not want to have any more babies after this and this baby was not planned E either. I reviewed long-term methods such as the Mirena IUD the ParaGard IUD in broad categories with their methods of action and typical side effects of bleeding and menstrual changes. I also reviewed tubal ligation but she would need to sign consent form for that and it would need to be discussed as well possibly at [facility] if that was an option there. She is not at all interested in that because of the possibility of the risks involved in surgery. She also is not interested in any of the IUDs but she wanted either shots or pills or the thing in her arm that she could use for 5 years I told her that the thing in the arm was for 3 years here in this c ountry and it was call the Nexplanon and it had some side effects on bleeding and how women felt as well as weight gain. She said she would put up with those and that was probably going to be her choice. This summary was actually a much longer discussion with translation. She also intends to breastfeed until she can go back to work and then she will give the baby the bottle. I told her she will be called soon about the ultrasound which is for increased echogenic focus and marginal insertion. We will see her again in 2 weeks. Visit Date: 08/18/23 Last Updated by: Edwige Lynch CNM Note author: Edwige Lynch CNM/Mary Soria, medical office scheduler 26.4 wk CARLOS. Taking PNV. Good FM. Denies LOF, VB or abd pain. Good appetite and stays well hydrated. Partner at visit. Reports discomfort/pressure when sitting down and standing, relieved with laying down. Discussed: PTL-LOF, VB, abd pain, ctx and when to call for further evaluation. PEC - headaches: not resolved with 2 regular strength Tylenol doses, visual disturbances warnings and when to call for further evaluation.? FKC: have something to eat and drink, should have 5 kicks in 1hr or 10 kicks in 2 hrs, if not call immediately for evaluation. Staying well hydrated, drink 8-10 glasses of water per day. Plan to do GTT at next visit. RTO in 2 weeks. Visit Date: 07/21/23 Last Updated by: Dorota Cherry CNM Patient is here for visit with her . Translation was done more effectively today with a cut off saw operator available on tablet identification of which is noted by the medical case manager. The patient did not make much eye contact for until the end of the visit and had her head hung down and appeared lethargic and when I asked her about appearing tired she said her upper back hurt. She says that when she lays in a certain position it feels better and also it feels better when she lets of warm shower run on it. I discussed posture and trying to help hold herself in a better way to not make her back pain worse, and also suggested perhaps her might want to give her a massage and they laughed and he said that he does.. The patient was worried because she said that they told her there was something that they saw on the baby's head and I reviewed the ultrasound with them that showed the echogenic focus that was noted and also the marginal cord insertion. She has been praying every day for her baby because her other children are okay and she is very much hoping this baby will be okay to. Her baby is very active and this is reassuring to her. I had her record the baby's heart rate so they can share this with their other children and they enjoyed this. I reviewed the negative panoramic screen that showed that the fetus at is at low risk for trisomy 21 and 18 and 13. She says she is eating well and in fact is very hungry and all she can think gives eating after this visit. Her legs appeared slightly edematous to me but she says they are not and that is how they always look. They are still living in [place] at the same place but the children are in school in [place] because when they 1st came they were in a hotel there and the children like the school so that is where they go to school. They are happy that they are having a boy . Her next visit can be in 4 weeks and I also told her that in about 6 weeks she will be getting more lab work to check on the blood sugar to screen for diabetes ; And also that in around 32 weeks 10 weeks from now we will be requesting another ultrasound at [facility] to check on growth because of the marginal cord insertion. Visit Date: 06/23/23 Last Updated by: Dorota Cherry CNM Patient presents to visit which is scheduled as an OB PE however she has signed in later than appointment time though she says she ar rived on time.. Patient speaks Russian Citizen [place] Creole. It developed at the very end of the visit that she also speaks Portuguese which turned out to be a better way of communication then using the translation tablet. Patient appeared annoyed during the visit and it was not until she volunteered that she spoke Portuguese at the end and I was able to communicate with her in Portuguese that she smiled and she and her relaxed and were able to communicate more freely. They live in a group home they have their own apartment there are other families there from [facility] but they all have their own apartments. She says she does have transportation to get to [facility] for the ultrasound and that took quite a bit of translation to establish. I did let her know that that is going to be where she is going to give as well in reviewing the chart while she today she is scheduled for new OB PE visit it develops that when she saw Dr. Pleitez on 05/30/2023 he did a complete exam for her on that day including Pap smear and testing for STIs which were all negative. She has had all of her blood work and it was all negative and she is not anemic and because she has no history of gestational diabetes that was not necessary to be done. She has her OB anatomy survey ultrasound at [facility] and she has the address written down in her wallet and she is going there on July 04. We will see her again in 4 weeks. She tells me she is eating well and getting plenty of protein and vegetables. Neither she nor her had other questions or concerns today for this visit. I did acknowledge that it must be very challenging to be in a new country and when she shared that she spoke Portuguese we were able to get much further. I will send her v itamin prescription by computer to [facility] and explained to her that there is no written prescription and that is how she will get the prescription. additionally she shared that she delivered all of her children in the hospital in [facility] and she had no difficulty. And I also inquired as to what her future plans for having babies was and she said that she is having no more babies after this 1 and that she is done having babies after this. I asked her what her plan was and she said her plan is no more babies and I said we will talk about this further in future visits so that we workout exactly how she will accomplish this but she is very clear that she does not want anymore children after this 1. 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 LMP unknown. US on 04/18/23 at 9w1d gives SAM of 11/20/23 and GA today of 17w1d. She has moved here from [facility]. BMI is 42. This was unplanned but the couple is happy. Pt saw Dr Pleitez for consult and has already had her labs done. She is scheduled for OB PE 06/23/23 with Dorota and for FAS at [facility] 07/04/23 @ 0830. She had an appt for genetic counseling at [facility] 06/07/23, report of visit is pending. Pt was given a folder in Portuguese as she does speak the language somewhat but her first language is [place] Creole. We reviewed danger signs, MD coverage 12/06 and how to reach MD after hours. She is taking her PNV daily and has no c/o at this time. AFP was ordered by Dr Pleitez but the result was for tumor marker and not . Will add order for AFP maternal serum and send the ordering worksheet once it is completed to Chemistry. Pt was too late for NT US but is scheduled for FAS as noted above. Pt will go to lab in the next couple of days. We reviewed first trimester education. Bry has no further questions at this time. She verbalizes understanding and agrees with plan. Review of Systems Const All systems reviewed & are unremarkable except as noted in HPI and below GI Reports abdominal pain (intermittent lower abdominal) Results AMB Urinalysis, Automated UA Leukoctes 0.5 Loreto/uL Last Edit by RYAN Pace on 09/13/23 12:0 7 UA Nitrite Negative Last Edit by RYAN Pace on 09/13/23 12:07 UA Urobilinogen 0 mg/dL Last Edit by RYAN Pace on 09/13/23 12:0 7 UA Protein 0.5 mg/dL Last Edit by RYAN Pace on 09/13/23 12:07 UA pH 6.0 Last Edit by RYAN Pace on 09/13/23 12:07 UA Blood 0 Anshu/uL Last Edit by RYAN Pace on 09/13/23 12:07 UA Specific [place] 1.015 Last Edit by RYAN Pace on 09/13/23 12:07 UA Ketone Negative Last Edit by RYAN Pace on 09/13/23 12:07 UA Bilirubin 0 mg/dL Last Edit by RYAN Pace on 09/13/23 12:07 UA Glucose 0 mg/dL Last Edit by Paige RYAN Denson on 09/13/23 12:07 Immunizations Boostrix Tdap 2.5 Lf unit-8 mcg-5 Lf/0.5 mL intramuscular syringe Performing Provider: Edwige Lynch CNM Performing Location: [facility] Administered by: Beverly Miller LPN on 09/13/23 12:55 Dose Route Admin Location Dispensed Lot Number Expiration Date NDC Film Sorter 0.5 mL IM Left Deltoid 0.5 mL [id number] 10/14/24 [id number] Contemporary Analysis VIS Given Date VIS Provided VIS Publication Date 09/13/23 Single Vaccine 21 Eligibility Eligibility Date Funding Source Not [facility] Eligible 09/13/23 Private Results Reviewed Results Reviewed: Laboratory Last Values Urine pH (Auto) 6.0 09/13/23 12:05 Specific [place] (Auto) 1.015 09/13/23 12:05 Urine Protein (Auto) 0.5 mg/dL 09/13/23 12:05 Glucose (UA)(Auto) 0 mg/dL 09/13/23 12:05 Urine Ketones (Auto) Negative 09/13/23 12:05 Urine Blood (Auto) 0 Anshu/uL 09/13/23 12:05 Urine Nitrite (Auto) Negative 09/13/23 12:05 Urine Bilirubin (Auto) 0 mg/dL 09/13/23 12:05 Urine Urobilinogen (Auto) 0 mg/dL 09/13/23 12:05 Leukocyte Esterase (Auto) 0.5 Loreto/uL 09/13/23 12:05 Assessment & Plan Assessment & Plan (1) Encounter for supervision of normal in third trimester: Code(s): Z34.93 - Encounter for supervision of normal , unspecified, third trimester Category: Medical Orders: Orders AMB Urinalysis Automated Today Z34.93 - Encounter for supervision of normal , unspecified, third trimester TDaP Immunization Today Z34.93 - Encounter for supervision of normal , unspecified, third trimester Medications: New PNV,calcium 26-[id number] acid 27 mg iron- 1 mg ( Vitamins Plus Low Iron) 1 tab PO DAILY 90 tabs 4RF Coding Level of Care Code [place] Diagnoses Encounter for supervision of normal in third trimester Z34.93
[2023-09-13 12:02] VITALS: BP 100/66; BMI 42.7
== END 2023-09-13 12:32 | disposition home or self-care (01) ==
PROVIDERS: PCP Obstetrics & Gynecology; Visit Provider Advanced Practice Midwife
DX: Z34.93 Encounter for supervision of normal pregnancy, unspecified, third trimester (principal)
CPT/HCPCS: 25942

== ENCOUNTER → 2023-09-13 11:19 | Outpatient (BNVA) | payer OTHER, SELFPAY | PROVIDERS: PCP Obstetrics & Gynecology; Visit Provider Advanced Practice Midwife | DX: O09.523 Supervision of elderly multigravida, third trimester (principal); Z23 Encounter for immunization; Z3A.30 30 weeks gestation of pregnancy | CPT/HCPCS: 81003; 90471; 90715; 99212 ==

== ENCOUNTER 2023-09-29 10:56 | Outpatient (AMB) | payer OTHER, SELFPAY ==
--- NOTE | 2023-09-29 11:13 | MHC.OFFVISPN ---
Intake Vital Signs 09/29/23 11:44 Weight 226 lb BP 100/60 Intake Visit Reasons: CARLOS Administrative Intern Required: Yes Administrative Intern Name: Lisa [id number], [id number] Information Interpreted: clinical only Allergies No Known Allergies Allergy (Verified 09/29/23 11:14) Medication List - Last Reconciled 09/29/23 by Dorota Cherry CNM PNV,calcium [id number]-[id number] acid 27 mg iron- 1 mg ( Vitamins Plus Low Iron) 1 tab PO DAILY Patient : Yes PFSH Medical History AMA (advanced maternal age) multigravida 35+ Obesity, morbid, BMI 40.0-49.9 Social History Household Members: Spouse and Family Both parents involved: Yes Caregiver staying overnight: No Housing: Apartment Are you a primary vocational childcare teacher to a significant other at home: No Do you presently have visiting nurse or other home services: No 75 years or older and lives alone: No Alcohol intake: never Patient Tobacco Use Status: Never used Tobacco Agree to transfusion: Yes service: No Current occupational status: unemployed Female Reproductive History Menstrual Age of Menarche: 15 History History 5 Elective abortions 0 Para 4 Spontaneous abortions 0 Hx # Term Pregnancies 4 Ectopic pregnancies 0 Hx # Pregnancies 0 Multiple births 0 Past Pregnancies Del. Date GA/Weeks Outcome Route Wt Inf Gender Labor Cleo Anesthesia Location Provider Complicate 04/29/06 40 live - full term Male [facility] none 10/26/09 40 live - full term Male [facility] none 12/23/11 40 live - full term Male [facility] none 06/22/13 40 live - full term Female [facility] none Visit SAM Calculator Estimated Delivery Date Method Current WG Current Estimate 11/20/23 Ultrasound #1 32w 4d Expected Delivery Route/Plan Specific Issues/Plans 37yr. old ? ? G5 ?P4004 ? ? ?LMP: EDC:11/20/23 ?by 9 w u/s ? ? ?Blood type: A pos Problem List: 1. recent refugee to [place] from [facility] via [place], speaks Central African Creole Dominican, and Bruneian and East Timorese 2. AMA 3. BMI 42. Needs AP testing 3rd trimester NST/BPP 4. Marginal placenta- needs 3rd trimester growth check- 32 wks...(ordered and as of yet to be scheduled... rn to call p 08/29/23.); 09/27/23- 06/27, 79th%, fetus transverse, back up. Testing: Panorama/and or First Tri screen: ? ?risk too late,,,,07/21/23-patient eventually had tseting after genetic screening visit at [facility] on 07/04/23 and then anatomy scan was rescheduled to 07/06/2023. NT scan: AFP:..see RN note FAS: pending 07/04-done 07/06/2023 results to chart later. Echogenic focus noted in heart no cardiac anomalies noted. Also marginal cord insertion noted plan for growth scan at 32 weeks. Glucose: early n/a? 28 wk glucose: ?101 CBC 1st Tri: 12.7/38.4/306? 28 wk. CBC: 12.4.38.1 GBS: Vaccinations: Flu: informed available in August... Covid: Tdap: 09/13/23 Education/Services WIC: enrolled Social Supports/Stressors: Living situation: living in detention in [place] in own apartment with family( and other children). Supports:? Work/school: (children are attending school in [place] and like it-07/21/23) Transportation: unclear but states she has transportation Labor, and Concerns: Labor support: Plan: Hx of normal births.... Infant Feeding Plans: uncertain control: wants no more children after this 1 but does not have specific plan at this time 06/23/23- continue to explore.... Reviewed options in detail 08/29/2023. At this point thinks she will want a Nexplanon, even with side effects of weight gain and bleeding; declines IU S an IUD and tubal ligation and Depo-Provera and pills. OB Visit Log Initial Weight: 189 lb 9.561 oz Date <del>?</del> EGA Weight Gest Week Fundal Ht Present FHR move Efface % Edema BP PrePreg We Weight GTT <del>?</del> Glucose LV Protein Blood Type 06/13/23 <del>?</del> 17w 1d 222 lb 8 oz (+32 lb 14.439 oz) 222 lb 8 oz <del>?</del> 06/23/23 <del>?</del> 18w 4d 225 lb (+35 lb 6.439 oz) 18 140 active 122/82 225 lb <del>?</del> 07/21/23 <del>?</del> 22w 4d 225 lb (+35 lb 6.439 oz) 25 140 active 120/72 225 lb <del>?</del> 08/18/23 <del>?</del> 26w 4d 228 lb (+38 lb 6.439 oz) 27 150 active 110/68 228 lb <del>?</del> 08/29/23 <del>?</del> 28w 1d 226 lb (+36 lb 6.439 oz) 30 150 active 100/70 226 lb <del>?</del> 09/13/23 <del>?</del> 30w 2d 226 lb (+36 lb 6.439 oz) 32 140 active 100/66 226 lb <del>?</del> 09/29/23 <del>?</del> 32w 4d 226 lb (+36 lb 6.439 oz) 32 150 active 100/60 226 lb <del>?</del> Notes Visit Date: 09/29/23 Last Updated by: Dorota Cherry CNM Is here with her 10-year-old daughter for her visit because there is no school today because of the holiday. She said she is doing fine she had her ultrasound this week but there was not a Creole interpreter and translator at [facility] so she did not understand everything they said. I did review the reassuring findings with her. I also told her that her baby was transverse backup but that it probably would change position she said it hurts when the baby moves and he moves a lot whenever she eats or drinks cold water. She says she is eating very well but not a lot. She is not planning on having any more babies she says she has an appointment tomorrow at [facility] for testing (I could not find evidence of it in the chart so I had sent a request to the nurses to work on the scheduling of what was ordered at the last visit with Edwige For testing. Additionally reviewed meds she says she is taking a small pill but not a big 1 so I asked her to double check on the prescriptions at the pharmacy because the vitamins were re sent at the last visit as well. We will see her here in 2 weeks but testing should be twice weekly.. Visit Date: 09/13/23 Last Updated by: Elena Braxton Note author: Edwige Lynch CNM/Elena Braxton, medical cash poster. 30.2 wk CARLOS. Not taking PNV-she reports was not ever on them. Good FM. Denies LOF, VB. Confirms lower abdominal pressure when standing, resolved with rest. Doing well with no concerns. Good appetite and stays well hydrated. States she drinks more then she eats. Confirms lower back pain. She reports stretching at home to help with pain relief. She reports her last ultrasound was at 5 months in 05/2023. She states she had another ultrasound scheduled for today ( [facility] at 9:30 am) but did not attend. She had recent blood work performed recently and was concerned today?s appointment was due to irregular results. Discussed: PTL-LOF, VB, abd pain, ctx and when to call for further evaluation. PEC - headaches: not resolved with 2 regular strength Tylenol doses, visual disturbances warnings and when to call for further evaluation. FKC: have something to eat and drink, should have 5 kicks in 1hr or 10 kicks in 2 hrs, if not call immediately for evaluation. Staying well hydrated, drink 8-10 glasses of water per day. Prescription for vitamins was sent to the pharmacy today. She was supplied with a 3 months supply for the next year. I offered the patient a referral to physical therapy to help with stretching and exercises to help with lower back pain. At this time she would like to defer. I did educated her that she is able to apply a heating pad. Follow up will be in 2 weeks. The office will work on rescheduling the ultrasound. Start AP testing for 32 wks. Of note: Patient confirms yesterday on the phone she was going to attend her appointment for the ultrasound at [facility]. When asked why she did not attend she stated she forgot. Visit Date: 08/29/23 Last Updated by: Dorota Cherry CNM Is here with her for her visit she could not void when the MA asked her to so the urine specimen was missed. She did void afterwards but that was not obtained. She is feeling pressure. She has some pain in her right lower quadrant, but it is really only when she is sitting if she is walking or resting lying down it does not hurt her she does not think it has to do with the baby's movement the baby's moving normally for her-she thinks it is a normal cramp. Did discuss the ligaments that get stretched in . Her abdomen palpated soft throughout the long visit. The ultrasound has not yet been scheduled for followup. Please see the ultrasound from [facility] which is not filed under ultrasounds but under in coming document dated 07/07/2023 performed 07/06/2023). She had panoramic testing done because of increased risk of Downs which was negative. Call placed to RNs to work on scheduling the ultrasound. Patient has not yet gone for her glucose testing and cbc she can go for that at any time. I asked her if she wanted to go today but she said no but then she later said she thought she was post to get it done today in the end she decided that she will come on Monday for that I told her it would be 3 tests,-The cbc the glucose testing in the syphilis testing. She was given the edinburgh EPDS form to fill out in Dominican, and this was discussed during the visit but she did not want to fill it out while she was here and wanted to take at home and fill it out and bring it back. I reminded her it was for us to know how she was doing and it was not for somebody else to fill out with her. She said she would do it herself and bring it back at her next visit. She took the form home Additionally I raised the issue of control for after and she had told me and she reiterated that she did not want to have any more babies after this and this baby was not planned E either. I reviewed long-term methods such as the Mirena IUD the ParaGard IUD in broad categories with their methods of action and typical side effects of bleeding and menstrual changes. I also reviewed tubal ligation but she would need to sign consent form for that and it would need to be discussed as well possibly at [facility] if that was an option there. She is not at all interested in that because of the possibility of the risks involved in surgery. She also is not interested in any of the IUDs but she wanted either shots or pills or the thing in her arm that she could use for 5 years I told her that the thing in the arm was for 3 years here in this country and it was call the Nexplanon and it had some side effects on bleeding and how women felt as well as weight gain. She said she would put up with those and that was probably going to be her choice. This summary was actually a much longer discussion with translation. She also intends to breastfeed until she can go back to work and then she will give the baby the bottle. I told her she will be called soon about the ultrasound which is for increased echogenic focus and marginal insertion. We will see her again in 2 weeks. Visit Date: 08/18/23 Last Updated by: Edwige Lynch CNM Note author: Edwige Lynch CNM/Mary Soria, medical cash poster 26.4 wk CARLOS. Taking PNV. Good FM. Denies LOF, VB or abd pain. Good appetite and stays well hydrated. Partner at visit. Reports discomfort/pressure when sitting down and standing, relieved with laying down. Discussed: PTL-LOF, VB, abd pain, ctx and when to call for further evaluation. PEC - headaches: not resolved with 2 regular strength Tylenol doses, visual disturbances warnings and when to call for further evaluation.? FKC: have something to eat and drink, should have 5 kicks in 1hr or 10 kicks in 2 hrs, if not call immediately for evaluation. Staying well hydrated, drink 8-10 glasses of water per day. Plan to do GTT at next visit. RTO in 2 weeks. Visit Date: 07/21/23 Last Updated by: Dorota Cherry CNM Patient is here for visit with her . Translation was done more effectively today with a brand ambassadors promotional sales available on tablet identification of which is noted by the medical representative. The patient did not make much eye contact for until the end of the visit and had her head hung down and appeared lethargic and when I asked her about appearing tired she said her upper back hurt. She says that when she lays in a certain position it feels better and also it feels better when she lets of warm shower run on it. I discussed posture and trying to help hold herself in a better way to not make her back pain worse, and also suggested perhaps her might want to give her a massage and they laughed and he said that he does.. The patient was worried because she said that they told her there was something that they saw on the baby's head and I reviewed the ultrasound with them that showed the echogenic focus that was noted and also the marginal cord insertion. She has been praying every day for her baby because her other children are okay and she is very much hoping this baby will be okay to. Her baby is very active and this is reassuring to her. I had her record the baby's heart rate so they can share this with their other children and they enjoyed this. I reviewed the negative panoramic screen that showed that the fetus at is at low risk for trisomy 21 and 18 and 13. She says she is eating well and in fact is very hungry and all she can think gives eating after this visit. Her legs appeared slightly edematous to me but she says they are not and that is how they always look. They are still living in [place] at the same place but the children are in school in [place] because when they 1st came they were in a hotel there and the children like the school so that is where they go to school. They are happy that they are having a boy . Her next visit can be in 4 weeks and I also told her that in about 6 weeks she will be getting more lab work to check on the blood sugar to screen for diabetes ; And also that in around 32 weeks 10 weeks from now we will be requesting another ultrasound at [facility] to check on growth because of the marginal cord insertion. Visit Date: 06/23/23 Last Updated by: Dorota Cherry CNM Patient presents to visit which is scheduled as an OB PE however she has signed in later than appointment time though she says she arrived on time.. Patient speaks Dominican Central African Creole. It developed at the very end of the visit that she also speaks Bruneian which turned out to be a better way of communication then using the translation tablet. Patient appeared annoyed during the visit and it was not until she volunteered that she spoke Bruneian at the end and I was able to communicate with her in Bruneian that she smiled and she and her relaxed and were able to communicate more freely. They live in a detention they have their own apartment there are other families there from [facility] but they all have their own apartments. She says she does have transportation to get to [facility] for the ultrasound and that took quite a bit of translation to establish. I did let her know that that is going to be where she is going to give as well in reviewing the chart while she today she is scheduled for new OB PE visit it develops that when she saw Dr. Pleitez on 05/30/2023 he did a complete exam for her on that day including Pap smear and testing for STIs which were all negative. She has had all of her blood work and it was all negative and she is not anemic and because she has no history of gestational diabetes that was not necessary to be done. She has her OB anatomy survey ultrasound at [facility] and she has the address written down in her wallet and she is going there on July 04. We will see her again in 4 weeks. She tells me she is eating well and getting plenty of protein and vegetables. Neither she nor her had other questions or concerns today for this visit. I did acknowledge that it must be very challenging to be in a new country and when she shared that she spoke Bruneian we were able to get much further. I will send her vitamin prescription by computer to [facility] and explained to her that there is no written prescription and that is how she will get the prescription. additionally she shared that she delivered all of her children in the hospital in [facility] and she had no difficulty. And I also inquired as to what her future plans for having babies was and she said that she is having no more babies after this 1 and that she is done having babies after this. I asked her what her plan was and she said her plan is no more babies and I said we will talk about this further in future visits so that we workout exactly how she will accomplish this but she is very clear that she does not want anymore children after this 1. 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 LMP unknown. US on 04/18/23 at 9w1d gives SAM of 11/20/23 and GA today of 17w1d. She has moved here from [facility]. BMI is 42. This was unplanned but the couple is happy. Pt saw Dr Pleitez for consult and has already had her labs done. She is scheduled for OB PE 06/23/23 with Dorota and for FAS at [facility] 07/04/23 @ 0830. She had an appt for genetic counseling at [facility] 06/07/23, report of visit is pending. Pt was given a folder in Bruneian as she does speak the language somewhat but her first language is Central African Creole. We reviewed danger signs, MD coverage 12/06 and how to reach MD after hours. She is taking her PNV daily and has no c/o at this time. AFP was ordered by Dr Pleitez but the result was for tumor marker and not . Will add order for AFP maternal serum and send the ordering worksheet once it is completed to Chemistry. Pt was too late for NT US but is scheduled for FAS as noted above. Pt will go to lab in the next couple of days. We reviewed first trimester education. Bry has no further questions at this time. She verbalizes understanding and agrees with plan. Results AMB Urinalysis, Automated UA Leukoctes 3 Loreto/uL Last Edit by Dior Seay CMA on 09/29/23 11:37 UA Nitrite Negative Last Edit by Dior Seay, TRUMAN on 09/29/23 11:37 UA Urobilinogen 1 mg/dL Last Edit by Dior Seay, SPRING TESTER on 09/29/23 11:37 UA Protein 2 mg/dL Last Edit by Dior Seay, SPRING TESTER on 09/29/23 11:37 UA pH 6.0 Last Edit by Dior Seay, SPRING TESTER on 09/29/23 11:37 UA Blood 0 Anshu/uL Last Edit by Dior Seay, SPRING TESTER on 09/29/23 11:37 UA Specific [place] 1.025 Last Edit by Dior Seay, SPRING TESTER on 09/29/23 11:37 UA Ketone Last Edit by Dior Seay, SPRING TESTER on 09/29/23 11:37 UA Bilirubin 1 mg/dL Last Edit by Dior Seay, SPRING TESTER on 09/29/23 11:37 UA Glucose 0 mg/dL Last Edit by Dior Seay, SPRING TESTER on 09/29/23 11:37 Results Reviewed Results Reviewed: Laboratory Last Values Urine pH (Auto) 6.0 09/29/23 11:33 Specific [place] (Auto) 1.025 09/29/23 11:33 Urine Protein (Auto) 2 mg/dL L 09/29/23 11:33 Glucose (UA)(Auto) 0 mg/dL 09/29/23 11:33 Urine Blood (Auto) 0 Anshu/uL 09/29/23 11:33 Urine Nitrite (Auto) Negative 09/29/23 11:33 Urine Bilirubin (Auto) 1 mg/dL L 09/29/23 11:33 Urine Urobilinogen (Auto) 1 mg/dL 09/29/23 11:33 Leukocyte Esterase (Auto) 3 Loreto/uL L* 09/29/23 11:33 Assessment & Plan Assessment & Plan (1) Encounter for supervision of normal in third trimester: Code(s): Z34.93 - Encounter for supervision of normal , unspecified, third trimester Category: Medical (2) Marginal insertion of umbilical cord affecting management of mother: Code(s): O43.199 - Other malformation of placenta, unspecified trimester Category: Medical (3) Echogenic focus of heart of fetus affecting antepartum care of mother: Code(s): O35.BXX0 - Maternal care for other (suspected) abnormality and damage, cardiac anomalies, not applicable or unspecified Category: Medical (4) Immigrant with language difficulty: Code(s): Z60.3 - Acculturation difficulty Category: Social Hx (5) AMA (advanced maternal age) multigravida 35+: Code(s): O09.529 - Supervision of elderly multigravida, unspecified trimester Category: Medical Orders: Orders AMB Urinalysis Automated Today O43.199 - Other malformation of placenta, unspecified trimester Coding Level of Care Code [place] Diagnoses Encounter for supervision of normal in third trimester Z34.93 Marginal insertion of umbilical cord affecting management of mother O43.199 Echogenic focus of heart of fetus affecting antepartum care of mother O35.BXX0 Immigrant with language difficulty Z60.3 AMA (advanced maternal age) multigravida 35+ O09.529
[2023-09-29 11:44] VITALS: BP 100/60
== END 2023-09-29 12:13 | disposition home or self-care (01) ==
LOC: HO.HWS 10:56
PROVIDERS: PCP Obstetrics & Gynecology; Visit Provider Advanced Practice Midwife
DX: Z34.93 Encounter for supervision of normal pregnancy, unspecified, third trimester (principal); O43.199 Other malformation of placenta, unspecified trimester; O35.BXX0 Maternal care for other (suspected) fetal abnormality and damage, fetal cardiac anomalies, not applicable or unspecified; Z60.3 Acculturation difficulty; O09.529 Supervision of elderly multigravida, unspecified trimester
CPT/HCPCS: 25942

== ENCOUNTER → 2023-09-29 10:56 | Outpatient (BNVA) | payer OTHER, SELFPAY | PROVIDERS: PCP Obstetrics & Gynecology; Visit Provider Advanced Practice Midwife | DX: O09.523 Supervision of elderly multigravida, third trimester (principal); Z3A.32 32 weeks gestation of pregnancy; O43.193 Other malformation of placenta, third trimester; O35.BXX0 Maternal care for other (suspected) fetal abnormality and damage, fetal cardiac anomalies, not applicable or unspecified; Z60.3 Acculturation difficulty | CPT/HCPCS: 81003; 99212 ==

== ENCOUNTER 2023-10-09 11:26 | Outpatient (AMB) | payer OTHER, SELFPAY ==
--- NOTE | 2023-10-09 11:29 | A.OFFVISPN_ITS ---
Intake Vital Signs 10/09/23 11:30 Height 5 ft 1 in Weight 224 lb BMI 42.3 BP 114/78 Intake Visit Reasons: CARLOS Web Site Designer Required: Yes Web Site Designer Language: Brazilian Ceciliamichele Web Site Designer Name: Juventino Peterson [id number] Allergies No Known Allergies Allergy (Verified 10/09/23 11:37) Is last menstrual period known: No Post menopausal: No Patient : Yes PFSH Medical History AMA (advanced maternal age) multigravida 35+ Obesity, morbid, BMI 40.0-49.9 Social History Household Members: Spouse and Family Both parents involved: Yes Caregiver staying overnight: No Housing: Apartment Are you a primary critical care unit nurse to a significant other at home: No Do you presently have visiting nurse or other home services: No 75 years or older and lives alone: No Alcohol intake: never Patient Tobacco Use Status: Never used Tobacco Agree to transfusion: Yes service: No Current occupational status: unemployed Female Reproductive History Menstrual Age of Menarche: 15 control method: none Total pregnancies: 5 Full term: 4 Number of Living Children: 4 Date of last pap smear: 06/01/23 (negative) History History 5 Elective abortions 0 Para 4 Spontaneous abortions 0 Hx # Term Pregnancies 4 Ectopic pregnancies 0 Hx # Pregnancies 0 Multiple births 0 Past Pregnancies Del. Date GA/Weeks Outcome Route Wt Inf Gender Labor Cleo Anesthesia Location Provider Complicate 04/29/06 40 live - full term Male [facility] none 10/26/09 40 live - full term Male [facility] none 12/23/11 40 live - full term Male [facility] none 06/22/13 40 live - full term Female [facility] none Questionnaire History History : 5 Visit SAM Calculator Estimated Delivery Date Method Current WG Current Estimate 11/20/23 Ultrasound #1 34w 0d Expected Delivery Route/Plan Specific Issues/Plans 37yr. old ? ? G5 ?P4004 ? ? ?LMP: EDC:11/20/23 ?by 9 w u/s ? ? ?Blood type: A pos Problem List: 1. recent refugee to [place] from [facility] via [place], speaks Brazilian Creole Bangladeshi, and Welsh and French 2. AMA 3. BMI 42. Needs AP testing 3rd trimester NST/BPP; see list on summary for ANT schedule 4. Marginal placenta- needs 3rd trimester growth check- 32 wks...(ordered and as of yet to be scheduled... rn to call p 08/29/23.); 09/27/23- 06/27, 79th%, fetus transverse, back up. Testing: Panorama/and or First Tri screen: ? ?risk too late,,,,07/21/23-patient eventually had tseting after genetic screening visit at [facility] on 07/04/23 and then anatomy scan was rescheduled to 07/06/2023. NT scan: AFP:..see RN note FAS: pending 07/04-done 07/06/2023 results to chart later. Echogenic focus noted in heart no cardiac anomalies noted. Also marginal cord insertion noted plan for growth scan at 32 weeks. 10/03/2023 BPP 06/27. Per [facility] testing before 37 weeks is being canceled to resume at 37 weeks. Glucose: early n/a? 28 wk glucose: ?101 CBC 1st Tri: 12.7/38.4/306? 28 wk. CBC: 12.4.38.1 GBS: Vaccinations: Flu: informed available in August... Covid: Tdap: 09/13/23 Education/Services WIC: enrolled Social Supports/Stressors: Living situation: living in senior care in [place] in own apartment with family( and other children). Supports:? Work/school: (children are attending school in [place] and like it-07/21/23) Transportation: unclear but states she has transportation Labor, and Concerns: Labor support: Plan: Hx of normal births.... Infant Feeding Plans: uncertain control: wants no more children after this 1 but does not have specific plan at this time 06/23/23- continue to explore.... Reviewed options in detail 08/29/2023. At this point thinks she will want a Nexplanon, even with side effects of weight gain and bleeding; declines IU S an IUD and tubal ligation and Depo-Provera and pills. ANT schedule: see [employer] summary.... 10/09/23- MFM cancelled ANT after 10/03/23 (06/27,) until 37 w, for AMA, when it will resume. OB Visit Log Initial Weight: 189 lb 9.561 oz Date -?-?-?-?-?-?-?-?-?-?-?-?- EGA Weight Gest Week Fundal Ht Present FHR move Efface % Edema BP PrePreg We Weight GTT -?-?-?-?-?-?-?-?--?-?-?-?- Glucose LV Protein Blood Type 06/13/23 -?-?-?-?-?-?-?-?-?-?-?-?- 17w 1d 222 lb 8 oz (+32 lb 14.439 oz) 222 lb 8 oz -?-?-?-?-?-?-?-?-?-?-?-?- 06/23/23 -?-?-?-?-?-?-?-?-?-?-?-?- 18w 4d 225 lb (+35 lb 6.439 oz) 18 140 active 122/82 225 lb -?-?-?-?-?-?-?-?-?-?-?-?- 07/21/23 -?-?-?-?-?-?-?-?-?-?-?-?- 22w 4d 225 lb (+35 lb 6.439 oz) 25 140 active 120/72 225 lb -?-?-?-?-?-?-?-?-?-?-?-?- 08/18/23 -?-?-?-?-?-?-?-?-?-?-?-?- 26w 4d 228 lb (+38 lb 6.439 oz) 27 150 active 110/68 228 lb -?-?-?-?-?-?-?-?-?-?-?-?- 08/29/23 -?-?-?-?-?-?-?-?-?-?-?-?- 28w 1d 226 lb (+36 lb 6.439 oz) 30 150 active 100/70 226 lb -?-?-?-?-?-?-?-?-?-?-?-?- 09/13/23 -?-?-?-?-?-?-?-?-?-?-?-?- 30w 2d 226 lb (+36 lb 6.439 oz) 32 140 active 100/66 226 lb -?-?-?-?-?-?-?-?-?-?-?-?- 09/29/23 -?-?-?-?-?-?-?-?-?-?-?-?- 32w 4d 226 lb (+36 lb 6.439 oz) 32 150 active 100/60 226 lb -?-?-?-?-?-?-?-?-?-?-?-?- 10/09/23 -?-?-?-?-?-?-?-?-?-?-?-?- 34w 0d 224 lb (+34 lb 6.439 oz) 35 vtx 150 active 224 lb -?-?-?-?-?-?-?-?-?-?-?-?- Notes Visit Date: 10/09/23 Last Updated by: Dorota Cherry CNM Patient is here at 34 weeks and 0 days for visit at [facility]. She is feeling okay and feels like everything is happening as she remembers. She is having more discomfort and pain at night and it is harder to moving around in the bed and move in general as the weeks go by. The baby is moving well. She had her ultrasound at [facility] last week and it was reviewed. She said she communicated concern to the doctors that she was having too many ultrasounds in that meant something was wrong with the baby and they told her everything was fine and they wrote in the recommendations that she does not need to return therefore another ultrasound until 3 weeks from the date of that ultrasound. They canceled the other testing until 37 weeks when she will begin testing secondary to AMA. See the ultrasound from [facility] please. Discussed labor readiness. She says her now has a car and he will drive her to the hospital when she is in labor. She says all her other labors were normal and fast and she will know when it is time. We will see her in 2 weeks and I told her to expect cultures and a vaginal exam at that visit. Discussed the normalcy of these changes in the 3rd trimester. Visit Date: 09/29/23 Last Updated by: Dorota Cherry CNM Is here with her 10-year-old daughter for her visit because there is no school today because of the holiday. She said she is doing fine she had her ultrasound this week but there was not a Creole supervisor aluminum fabrication at [facility] so she did not understand everything they said. I did review the reassuring findings with her. I also told her that her baby was transverse backup but that it probably would change position she said it hurts when the baby moves and he moves a lot whenever she eats or drinks cold water. She says she is eating very well but not a lot. She is not planning on having any more babies she says she has an appointment tomorrow at [facility] for testing (I could not find evidence of it in the chart so I had sent a request to the nurses to work on the scheduling of what was ordered at the last visit with Edwige For testing. Additionally reviewed meds she says she is taking a small pill but not a big 1 so I asked her to double check on the prescriptions at the pharmacy because the vitamins were re sent at the last visit as well. We will see her here in 2 weeks but testing should be twice weekly.. Visit Date: 09/13/23 Last Updated by: Elena Braxton Note author: Edwige Lynch CNM/Elena Braxton, medical pathology teacher. 30.2 wk CARLOS. Not taking PNV-she reports was not ever on them. Good FM. Denies LOF, VB. Confirms lower abdominal pressure when standing, resolved with rest. Doing well with no concerns. Good appetite and stays well hydrated. States she drinks more then she eats. Confirms lower back pain. She reports stretching at home to help with pain relief. She reports her last ultrasound was at 5 months in 05/2023. She states she had another ultrasound scheduled for today ( [facility] at 9:30 am) but did not attend. She had recent blood work performed recently and was concerned today?s appointment was due to irregular results. Discussed: PTL-LOF, VB, abd pain, ctx and when to call for further evaluation. PEC - headaches: not resolved with 2 regular strength Tylenol doses, visual disturbances warnings and when to call for further evaluation. FKC: have something to eat and drink, should have 5 kicks in 1hr or 10 kicks in 2 hrs, if not call immediately for evaluation. Staying well hydrated, drink 8-10 glasses of water per day. Prescription for vitamins was sent to the pharmacy today. She was supplied with a 3 months supply for the next year. I offered the patient a referral to physical therapy to help with stretching and exercises to help with lower back pain. At this time she would like to defer. I did educated her that she is able to apply a heating pad. Follow up will be in 2 weeks. The office will work on rescheduling the ultrasound. Start AP testing for 32 wks. Of note: Patient confirms yesterday on the phone she was going to attend her appointment for the ultrasound at [facility]. When asked why she did not attend she stated she forgot. Visit Date: 08/29/23 Last Updated by: Dorota Cherry CNM Is here with her for her visit she could not void when the MA asked her to so the urine specimen was missed. She did void afterwards but that was not obtained. She is feeling pressure. She has some pain in her right lower quadrant, but it is really only when she is sitting if she is walki ng or resting lying down it does not hurt her she does not think it has to do with the baby's movement the baby's moving normally for her-she thinks it is a normal cramp. Did discuss the ligaments that get stretched in . Her abdomen palpated soft throughout the long visit. The ultrasound has not yet been scheduled for followup. Please see the ultrasound from [facility] which is not filed under ultrasounds but under in coming document dated 07/07/2023 performed 07/06/2023). She had panoramic testing done because of increased risk of Downs which was negative. Call placed to RNs to work on scheduling the ultrasound. Patient has not yet gone for her glucose testing and cbc she can go for that at any time. I asked her if she wanted to go today but she said no but then she later said she thought she was post to get it done today in the end she decided that she will come on Monday for that I told her it would be 3 tests,- The cbc the glucose testing in the syphilis testing. She was given the edinburgh EPDS form to fill out in Bangladeshi, and this was discussed during the visit but she did not want to fill it out while she was he re and wanted to take at home and fill it out and bring it back. I reminded her it was for us to know how she was doing and it was not for somebody else to fill out with her. She said she would do it herself and bring it back at her next visit. She took the form home Additionally I raised the issue of control for after and she had told me and she reiterated that she did not want to have any more babies after this and this baby was not planned E either. I reviewed long-term methods such as the Mirena IUD the ParaGard IUD in broad categories with their methods of action and typical side effects of bleeding and menstrual changes. I also reviewed tubal ligation but she would need to sign consent form for that and it would need to be discussed as well possibly at [facility] if that was an option there. She is not at all interested in that because of the possibility of the risks involved in surgery. She also is not interested in any of the IUDs but she wanted either shots or pills or the thing in her arm that she could use for 5 years I told her that the thing in the arm was for 3 years here in this country and it was call the Nexplanon and it had some side effects on bleeding and how women felt as well as weight gain. She said she would put up with those and that was probably going to be her choice. This summary was actually a much longer discussion with translation. She also intends to breastfeed until she can go back to work and then she will give the baby the bottle. I told her she will be called soon about the ultrasound which is for increased echogenic focus and marginal insertion. We will see her again in 2 weeks. Visit Date: 08/18/23 Last Updated by: Edwige Lynch CNM Note author: Edwige Lynch CNM/Mary Soria, medical pathology teacher 26.4 wk CARLOS. Taking PNV. Good FM. Denies LOF, VB or abd pain. Good appetite and stays well hydrated. Partner at visit. Reports discomfort/pressure when sitting down and standing, relieved with laying down. Discussed: PTL-LOF, VB, abd pain, ctx and when to call for further evaluation. PEC - headaches: not resolved with 2 regular strength Tylenol doses, visual disturbances warnings and when to call for further evaluation.? FKC: have something to eat and drink, should have 5 kicks in 1hr or 10 kicks in 2 hrs, if not call immediately for evaluation. Staying well hydrated, drink 8-10 glasses of water per day. Plan to do GTT at next visit. RTO in 2 weeks. Visit Date: 07/21/23 Last Updated by: Dorota Cherry CNM Patient is here for visit with her . Translation was done more effectively today with a winery cellar hand available on tablet identification of which is noted by the medical research scientist. The patient did not make much eye contact for until the end of the visit and had her head hung down and appeared lethargic and when I asked her about appearing tired she said her upper back hurt. She says that when she lays in a certain position it feels better and also it feels better when she lets of warm shower run on it. I discussed posture and trying to help hold herself in a better way to not make her back pain worse, and also suggested perhaps her might want to give her a massage and they laughed and he said that he does.. The patient was worried because she said that they told her there was something that they saw on the baby's head and I reviewed the ultrasound with them that showed the echogenic focus that was noted and also the marginal cord insertion. She has been praying every day for her baby because her other children are okay and she is very much hoping this baby will be okay to. Her baby is very active and this is reassuring to her. I had her record the baby's heart rate so they can share this with their other children and they enjoyed this. I reviewed the negative panoramic screen that showed that the fetus at is at low risk for trisomy 21 and 18 and 13. She says she is eating well and in fact is very hungry and all she can think gives eating after this visit. Her legs appeared slightly edematous to me but she says they are not and that is how they always look. They are still living in [place] at the same place but the children are in school in [place] because when they 1st came they were in a hotel there and the children like the school so that is where they go to school. They are happy that they are having a boy . Her next visit can be in 4 weeks and I also told her that in about 6 weeks she will be getting more lab work to check on the blood sugar to screen for diabetes ; And also that in around 32 weeks 10 weeks from now we will be requesting another ultrasound at [facility] to check on growth because of the marginal cord insertion. Visit Date: 06/23/23 Last Updated by: Dorota Cherry CNM Patient presents to visit which is scheduled as an OB PE however she has signed in later than appointment time though she says she arrived on time.. Patient speaks Bangladeshi Brazilian Creole. It developed at the very end of the visit that she also speaks Welsh which turned out to be a better way of communication then using the translation tablet. Patient appeared annoyed during the visit and it was not until she volunteered that she spoke Welsh at the end and I was able to communicate with her in Welsh that she smiled and she and her relaxed and were able to communicate more freely. They live in a senior care they have their own apartment there are other families there from [facility] but they all have their own apartments. She says she does have transportation to get to [facility] for the ultrasound and that took quite a bit of translation to establish. I did let her know that that is going to be where she is going to give as well in reviewing the chart while she today she is scheduled for new OB PE visit it develops that when she saw Dr. Pleitez on 05/30/2023 he did a complete exam for her on that day including Pap smear and testing for STIs which were all negative. She has had all of her blood work and it was all negative and she is not anemic and because she has no history of gestational diabetes that was not necessary to be done. She has her OB anatomy survey ultrasound at [facility] and she has the address written down in her wallet and she is going there on July 04. We will see her again in 4 weeks. She tells me she is eating well and getting plenty of protein and vegetables. Neither she nor her had other questions or concerns today for this visit. I did acknowledge that it must be very challenging to be in a new country and when she shared that she spoke Welsh we were able to get much further. I will send her vitamin prescription by computer to [facility] and explained to her that there is no written prescription and that is how she will get the prescription. additionally she shared that she delivered all of her children in the hospital in [facility] and she had no difficulty. And I also inquired as to what her future plans for having babies was and she said that she is having no more babies after this 1 and that she is done having babies after this. I asked her what her plan was and she said her plan is no more babies and I said we will talk about this further in future visits so that we workout exactly how she will accomplish this but she is very clear that she does not want anymore children after this 1. 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 LMP unknown. US on 04/18/23 at 9w1d gives SAM of 11/20/23 and GA today of 17w1d. She has moved here from [facility]. BMI is 42. This was unplanned but the couple is happy. Pt saw Dr Pleitez for consult and has already had her labs done. She is scheduled for OB PE 06/23/23 with Dorota and for FAS at [facility] 07/04/23 @ 0830. She had an appt for genetic counseling at [facility] 06/07/23, report of visit is pending. Pt was given a folder in Welsh as she does speak the language somewhat but her first language is Brazilian Creole. We reviewed danger signs, MD coverage 12/06 and how to reach MD after hours. She is taking her PNV daily and has no c/o at this time. AFP was ordered by Dr Pleitez but the result was for tumor marker and not . Will add order for AFP maternal serum and send the ordering worksheet once it is completed to Chemistry. Pt was too late for NT US but is scheduled for FAS as noted above. Pt will go to lab in the next couple of days. We reviewed first trimester education. Bry has no further questions at this time. She verbalizes understanding and agrees with plan. Assessment & Plan Assessment & Plan (1) Encounter for supervision of normal in third trimester: Comment: see [facility] comments- mo'b Code(s): Z34.93 - Encounter for supervision of normal , unspecified, third trimester Category: Medical Plan: (2) Marginal insertion of umbilical cord affecting management of mother: Comment: see [facility] comments 10/03/23- mob. Code(s): O43.199 - Other malformation of placenta, unspecified trimester Category: Medical Plan: (3) Echogenic focus of heart of fetus affecting antepartum care of mother: Comment: see [facility] comments 10/03/23-mob Code(s): O35.BXX0 - Maternal care for other (suspected) abnormality and damage, cardiac anomalies, not applicable or unspecified Category: Medical Plan: (4) Immigrant with language difficulty: Code(s): Z60.3 - Acculturation difficulty Category: Social Hx Plan: (5) AMA (advanced maternal age) multigravida 35+: Comment: see [facility] comments 10/03/23- mob Code(s): O09.529 - Supervision of elderly multigravida, unspecified trimester Category: Medical Plan: Coding Level of Care Code [place] Diagnoses Encounter for supervision of normal in third trimester Z34.93 Marginal insertion of umbilical cord affecting management of mother O43.199 Echogenic focus of heart of fetus affecting antepartum care of mother O35.BXX0 Immigrant with language difficulty Z60.3 AMA (advanced maternal age) multigravida 35+ O09.529
[2023-10-09 11:30] VITALS: BP 114/78; BMI 42.3
== END 2023-10-09 11:52 | disposition home or self-care (01) ==
LOC: HO.HWS 11:26
PROVIDERS: PCP Obstetrics & Gynecology; Visit Provider Advanced Practice Midwife
DX: Z34.93 Encounter for supervision of normal pregnancy, unspecified, third trimester (principal); O43.199 Other malformation of placenta, unspecified trimester; O35.BXX0 Maternal care for other (suspected) fetal abnormality and damage, fetal cardiac anomalies, not applicable or unspecified; Z60.3 Acculturation difficulty; O09.529 Supervision of elderly multigravida, unspecified trimester
CPT/HCPCS: 25942

== ENCOUNTER → 2023-10-09 11:26 | Outpatient (BNVA) | payer OTHER, SELFPAY | PROVIDERS: PCP Obstetrics & Gynecology; Visit Provider Advanced Practice Midwife | DX: O09.523 Supervision of elderly multigravida, third trimester (principal); O43.193 Other malformation of placenta, third trimester; Z60.3 Acculturation difficulty; Z3A.34 34 weeks gestation of pregnancy | CPT/HCPCS: 99212 ==

== ENCOUNTER 2023-10-23 11:19 | Outpatient (REF) | payer OTHER, SELFPAY ==
[2023-10-24 11:05] LABS: CT PCR NOT DETECTED (Not Detect.); NG PCR NOT DETECTED (Not Detect.)
[2023-10-24 14:26] LABS: BV Int Neg Control Negative (Negative)
[2023-10-24 14:27] LABS: BV Int Pos Control Positive (Positive)
[2023-10-25 13:07] LABS: Allergic to Penicillin? No
== END 2023-10-23 11:20 | disposition home or self-care (01) ==
LOC: HO.LNP 11:19
PROVIDERS: PCP Obstetrics & Gynecology; Visit Provider Advanced Practice Midwife
DX: O09.523 Supervision of elderly multigravida, third trimester (principal); O43.193 Other malformation of placenta, third trimester; O35.BXX0 Maternal care for other (suspected) fetal abnormality and damage, fetal cardiac anomalies, not applicable or unspecified; Z60.3 Acculturation difficulty; Z3A.36 36 weeks gestation of pregnancy
CPT/HCPCS: 0353U; 81003; 87081; 87150; 87480; 87510; 87660; 99212

== ENCOUNTER 2023-10-23 11:19 | Outpatient (AMB) | payer OTHER, SELFPAY ==
[2023-10-23 11:56] VITALS: BP 104/70; BMI 43.1
--- NOTE | 2023-10-23 11:56 | A.OFFVISPN_ITS ---
Intake Vital Signs 10/23/23 11:56 Height 5 ft 1 in Weight 228 lb BMI 43.1 BP 104/70 Intake Visit Reasons: CARLOS Intake Note: stomach pains Early Childhood Educator Aide Required: Yes Early Childhood Educator Aide Language: Maria Arnett Early Childhood Educator Aide Name: Melissa [id number] Accompanied by: Allergies No Known Allergies Allergy (Verified 10/23/23 11:57) Post menopausal: No Patient : Yes PFSH Medical History AMA (advanced maternal age) multigravida 35+ Obesity, morbid, BMI 40.0-49.9 Social History Household Members: Spouse and Family Both parents involved: Yes Caregiver staying overnight: No Housing: Apartment Are you a primary resident care assistant to a significant other at home: No Do you presently have visiting nurse or other home services: No 75 years or older and lives alone: No Alcohol intake: never Patient Tobacco Use Status: Never used Tobacco Agree to transfusion: Yes service: No Current occupational status: unemployed Female Reproductive History Menstrual Age of Menarche: 15 control method: none Total pregnancies: 5 Full term: 4 Number of Living Children: 4 Date of last pap smear: 06/01/23 (negative) History History 5 Elective abortions 0 Para 4 Spontaneous abortions 0 Hx # Term Pregnancies 4 Ectopic pregnancies 0 Hx # Pregnancies 0 Multiple births 0 Past Pregnancies Del. Date GA/Weeks Outcome Route Wt Inf Gender Labor Cleo Anesthesia Location Provider Complicate 04/29/06 40 live - full term Male [facility] none 10/26/09 40 live - full term Male [facility] none 12/23/11 40 live - full term Male [facility] none 06/22/13 40 live - full term Female [facility] none Questionnaire History History : 5 [place] Depression [place] Depression Scale I have been able to laugh and see the funny side of things: Definitely not so much now I have looked forward with enjoyment to things: As much as I ever did I have blamed myself unnecessarily when things went wrong: Yes, some of the time I have been anxious or worried for no reason: No, not at all I have felt scared of panicky for no very good reason at all: No, not at all Things have been getting on top of me: Yes, most of the time I haven't been able to cope at all I have been so unhappy that I have had difficulty sleeping: Yes, sometimes I have felt sad or miserable: Not very often I have been so unhappy that I have been crying: No, never The thought of harming myself has occurred to me: Never 10 PHQ Assessment Billing PHQ Assessment Tool: PHQ Assessment 05169 Visit SAM Calculator Estimated Delivery Date Method Current WG Current Estimate 11/20/23 Ultrasound #1 36w 0d Expected Delivery Route/Plan Specific Issues/Plans 37yr. old ? ? G5 ?P4004 ? ? ?LMP: EDC:11/20/23 ?by 9 w u/s ? ? ?Blood type: A pos Problem List: 1. recent refugee to [place] from [place] via [place], speaks [place]araguan Creole Djiboutian, and Zimbabwean and Mozambican 2. AMA 3. BMI 42. Needs AP testing 3rd trimester NST/BPP; see list on summary for ANT schedule 4. Marginal placenta- needs 3rd trimester growth check- 32 wks...(ordered and as of yet to be scheduled... rn to call p 08/29/23.); 09/27/23- 06/27, 79th%, fetus transverse, back up. Testing: Panorama/and or First Tri screen: ? ?risk too late,,,,07/21/23-patient eventually had tseting after genetic screening visit at [facility] on 07/04/23 and then anatomy scan was rescheduled to 07/06/2023. NT scan: AFP:..see RN note FAS: pending 07/04-done 07/06/2023 results to chart later. Echogenic focus noted in heart no cardiac anomalies noted. Also marginal cord insertion noted plan for growth scan at 32 weeks. 10/03/2023 BPP 06/27. Per M testing before 37 weeks is being canceled to resume at 37 weeks. Glucose: early n/a? 28 wk glucose: ?101 CBC 1st Tri: 12.7/38.4/306? 28 wk. CBC: 12.4.38.1 GBS: Vaccinations: Flu: informed available in . Covid: Tdap: 09/13/23 Education/Services WIC: enrolled Social Supports/Stressors: Living situation: living in group home in [place] in own apartment with family( and other children). Supports:? Work/school: (children are attending school in [place] and like it-07/21/23) Transportation: unclear but states she has transportation Labor, and Concerns: Labor support: Plan: Hx of normal births.... Infant Feeding Plans: uncertain control: wants no more children after this 1 but does not have specific plan at this time 06/23/23- continue to explore.... Reviewed options in detail 08/29/2023. At this point thinks she will want a Nexplanon, even with side effects of weight gain and bleeding; declines IU S an IUD and tubal ligation and Depo-Provera and pills. ANT schedule: see [employer] summary.... 10/09/23- [facility] cancelled ANT after 10/03/23 (06/27,) until 37 w, for AMA, when it will resume. OB Visit Log Initial Weight: 189 lb 9.561 oz Date -?-?-?-?-?-?-?-?-?-?-?-?- EGA Weight Gest Week Fundal Ht Present FHR move Efface % Edema BP PrePreg We Weight GTT -?-?-?-?-?-?-?-?-?-?-?-?- Glucose LV Protein Blood Type 06/13/23 -?-?-?-?-?-?-?-?-?-?-?--?- 17w 1d 222 lb 8 oz (+32 lb 14.439 oz) 222 lb 8 oz -?-?-?-?-?-?-?-?-?-?-?-?- 06/23/23 -?-?-?-?-?-?-?-?-?-?-?-?- 18w 4d 225 lb (+35 lb 6.439 oz) 18 140 active 122/82 225 lb -?-?-?-?-?-?-?-?-?-?-?-?- 07/21/23 -?-?-?-?-?-?-?-?-?-?-?-?- 22w 4d 225 lb (+35 lb 6.439 oz) 25 140 active 120/72 225 lb -?-?-?-?--?-?-?-?-?-?-?-?- 08/18/23 -?-?-?-?-?-?-?-?-?-?-?-?- 26w 4d 228 lb (+38 lb 6.439 oz) 27 150 active 110/68 228 lb -?-?-?-?-?-?-?-?-?-?-?-?- 08/29/23 -?-?-?-?-?-?-?-?-?-?-?-?- 28w 1d 226 lb (+36 lb 6.439 oz) 30 150 active 100/70 226 lb -?-?-?-?-?-?-?-?-?-?-?-?- 09/13/23 -?-?-?-?-?-?-?-?-?-?-?-?- 30w 2d 226 lb (+36 lb 6.439 oz) 32 140 active 100/66 226 lb -?-?-?-?-?-?-?-?-?-?-?-?- 09/29/23 -?-?-?-?-?-?-?-?-?-?-?-?- 32w 4d 226 lb (+36 lb 6.439 oz) 32 150 active 100/60 226 lb -?-?-?-?-?-?-?-?-?-?-?-?- 10/09/23 -?-?-?-?-?-?-?-?-?-?-?-?- 34w 0d 224 lb (+34 lb 6.439 oz) 35 vtx 150 active 224 lb -?-?-?-?-?-?-?-?-?-?-?-?- 10/23/23 -?-?-?-?-?-?-?-?-?-?-?-?- 36w 0d 228 lb (+38 lb 6.439 oz) 37 ??? 150 active 10 228 lb -?-?-?-?-?-?-?-?-?-?-?-?- Notes Visit Date: 10/23/23 Last Updated by: Dorota Cherry CNM Patient is here with her at 36 weeks for her visit today the plan is to do cultures at this visit she was given the EP DS form in Djib[place]ian and her was helping her fill it out but she said all of the answers were her some visit done with translation through the tablet with merchandise complaint adjuster to confirm this. She states she is doing well with the normal changes as the baby gets bigger. She feels most kicking down low and feels the baby's head is still down. On Wilton's today position feels uncertain to this examiner and heart was auscultated high on abdomen. SVE was done after speculum exam for cultures and group B strep cervix is tightly closed midposition high presenting part not palpable. EPDS translated to score after patient left equals 10.. She said she has an appointment tomorrow in [place] for an ultrasound. (though previous notes from [facility] stated that they were cancelling further evaluations until 37 weeks.) Position will be noted at ultrasound Discussed with patient that if the baby is not vertex that they will speak with her about turning the baby's position. RTC weekly until delivery according to previous notes testing to resume at 37 weeks(or per patient tomorrow). Visit Date: 10/09/23 Last Updated by: Dorota Cherry CNM Patient is here at 34 weeks and 0 days for visit at [facility]. She is feeling okay and feels like everything is happening as she remembers. She is having more discomfort and pain at night and it is harder to moving around in the bed and move in general as the weeks go by. The baby is moving well. She had her ultrasound at [facility] last week and it was reviewed. She said she communicated concern to the doctors that she was having too many ultrasounds in that meant something was wrong with the baby and they told her everything was fine and they wrote in the recommendations that she does not need to return therefore another ultrasound until 3 weeks from the date of that ultrasound. They canceled the other testing until 37 weeks when she will begin testing secondary to AMA. See the ultrasound from [facility] please. Discussed labor readiness. She says her now has a car and he will drive her to the hospital when she is in labor. She says all her other labors were normal and fast and she will know when it is time. We will see her in 2 weeks and I told her to expect cultures and a vaginal exam at that visit. Discussed the normalcy of these changes in the 3rd trimester. Visit Date: 09/29/23 Last Updated by: Dorota Cherry CNM Is here with her 10-year-old daughter for her visit because there is no school today because of the holiday. She said she is doing fine she had her ultrasound this week but there was not a Creole hub borer at [facility] so she did not understand everything they said. I did review the reassuring findings with her. I also told her that her baby was transverse backup but that it probably would change position she said it hurts when the baby moves and he moves a lot whenever she eats or drinks cold water. She says she is eating very well but not a lot. She is not planning on having any more babies she says she has an appointment tomorrow at [facility] for testing (I could not find evidence of it in the chart so I had sent a request to the nurses to work on the scheduling of what was ordered at the last visit with Edwige For testing. Additionally reviewed meds she says she is taking a small pill but not a big 1 so I asked her to double check on the prescriptions at the pharmacy because the vitamins were re sent at the last visit as well. We will see her here in 2 weeks but testing should be twice weekly.. Visit Date: 09/13/23 Last Updated by: Elena Braxton Note author: Edwige Lynch CNM/Elena Braxton, medical videographer. 30.2 wk CARLOS. Not taking PNV-she reports was not ever on them. Good FM. Denies LOF, VB. Confirms lower abdominal pressure when standing, resolved with rest. Doing well with no concerns. Good appetite and stays well hydrated. States she drinks more then she eats. Confirms lower back pain. She reports stretching at home to help with pain relief. She reports her last ultrasound was at 5 months in 05/2023. She states she had another ultrasound scheduled for today ( [facility] at 9:30 am) but did not attend. She had recent blood work performed recently and was concerned today?s appointment was due to irregular results. Discussed: PTL-LOF, VB, abd pain, ctx and when to call for further evaluation. PEC - headaches: not resolved with 2 regular strength Tylenol doses, visual disturbances warnings and when to call for further evaluation. FKC: have something to eat and drink, should have 5 kicks in 1hr or 10 kicks in 2 hrs, if not call immediately for evaluation. Staying well hydrated, drink 8-10 glasses of water per day. Prescription for vitamins was sent to the pharmacy today. She was supplied with a 3 months supply for the next year. I offered the patient a referral to physical therapy to help with stretching and exercises to help with lower back pain. At this time she would like to defer. I did educated her that she is able to apply a heating pad. Follow up will be in 2 weeks. The office will work on rescheduling the ultrasound. Start AP testing for 32 wks. Of note: Patient confirms yesterday on the phone she was going to attend her appointment for the ultrasound at [facility]. When asked why she did not attend she stated she forgot. Visit Date: 08/29/23 Last Updated by: Dorota Cherry CNM Is here with her for her visit she could not void when the MA asked her to so the urine specimen was missed. She did void afterwards but that was not obtained. She is feeling pressure. She has some pain in her right lower quadrant, but it is really only when she is sitting if she is walking or resting lying down it does not hurt her she does not think it has to do with the baby's movement the baby's moving normally for her-she thinks it is a normal cramp. Did discuss the ligaments that get stretched in . Her abdomen palpated soft throughout the long visit. The ultrasound has not yet been scheduled for followup. Please see the ultrasound from [facility] which is not filed under ultrasounds but under in coming document dated 07/07/2023 performed 07/06/2023). She had panoramic testing done because of increased risk of Downs which was negative. Call placed to RNs to work on scheduling the ultrasound. Patient has not yet gone for her glucose testing and cbc she can go for that at any time. I asked her if she wanted to go today but she said no but then she later said she thought she was post to get it done today in the end she decided that she will come on Monday for that I told her it would be 3 tests,- The cbc the glucose testing in the syphilis testing. She was given the edinburgh EPDS form to fill out in [place]ib[place]ian, and this was discussed during the visit but she did not want to fill it out while she was here and wanted to take at home and fill it out and bring it back. I reminded her it was for us to know how she was doing and it was not for somebody else to fill out with her. She said she would do it herself and bring it back at her next visit. She took the form home Additionally I raised the issue of control for after and she had told me and she reiterated that she did not want to have any more babies after this and this baby was not planned E either. I reviewed long-term methods such as the Mirena IUD the ParaGard IUD in broad categories with their methods of action and typical side effects of bleeding and menstrual changes. I also reviewed tubal ligation but she would need to sign consent form for that and it would need to be discussed as well possibly at [facility] if that was an option there. She is not at all interested in that because of the possibility of the risks involved in surgery. She also is not interested in any of the IUDs but she wanted either shots or pills or the thing in her arm that she could use for 5 years I told her that the thing in the arm was for 3 years here in this country and it was call the Nexplanon and it had some side effects on bleeding and how women felt as well as weight gain. She said she would put up with those and that was probably going to be her choice. This summary was actually a much longer discussion with translation. She also intends to breastfeed until she can go back to work and then she will give the baby the bottle. I told her she will be called soon about the ultrasound which is for increased echogenic focus and marginal insertion. We will see her again in 2 weeks. Visit Date: 08/18/23 Last Updated by: Edwige Lynch CNM Note author: Edwige Lynch CNM/Mary Soria, medical videographer 26.4 wk CARLOS. Taking PNV. Good FM. Denies LOF, VB or abd pain. Good appetite and stays well hydrated. Partner at visit. Reports discomfort/pressure when sitting down and standing, relieved with laying down. Discussed: PTL-LOF, VB, abd pain, ctx and when to call for further evaluation. PEC - headaches: not resolved with 2 regular strength Tylenol doses, visual disturbances warnings and when to call for further evaluation.? FKC: have something to eat and drink, should have 5 kicks in 1hr or 10 kicks in 2 hrs, if not call immediately for evaluation. Staying well hydrated, drink 8-10 glasses of water per day. Plan to do GTT at next visit. RTO in 2 weeks. Visit Date: 07/21/23 Last Updated by: Dorota Cherry CNM Patient is here for visit with her . Translation was done more effectively today with a merchandise complaint adjuster available on tablet identification of which is noted by the coroner/medical examiner. The patient did not make much eye contact for until the end of the visit and had her head hung down and appeared lethargic and when I asked her about appearing tired she said her upper back hurt. She says that when she lays in a certain position it feels better and also it feels better when she lets of warm shower run on it. I discussed post ure and trying to help hold herself in a better way to not make her back pain worse, and also suggested perhaps her might want to give her a massage and they laughed and he said that he does.. The patient was worried because she said that they told her there was something that they saw on the baby's head and I reviewed the ultrasound with them that showed the echogenic focus that was noted and also the marginal cord insertion. She has been praying every day for her baby because her other children are okay and she is very much hoping this baby will be okay to. Her ba by is very active and this is reassuring to her. I had her record the baby's heart rate so they can share this with their other children and they enjoyed this. I reviewed the negative panoramic screen that showed that the fetus at is at low risk for trisomy 21 and 18 and 13. She says she is eating well and in fact is very hungry and all she can think gives eating after this visit. Her legs appeared slightly edematous to me but she says they are not and that is how they always look. They are still living in [place] at the same place but the children are in school in [place] because when they 1st came they were in a hotel there and the children like the school so that is where they go to school. They are happy that they are having a boy . Her next visit can be in 4 weeks and I also told her that in about 6 weeks she will be getting more lab work to check on the blood sugar to screen for diabetes ; And also that in around 32 weeks 10 weeks from now we will be requesting another ultrasound at [facility] to check on growth because of the marginal cord insertion. Visit Date: 06/23/23 Last Updated by: Dorota Cherry CNM Patient presents to visit which is scheduled as an OB PE however she has signed in later than appointment time though she says she arrived on time.. Patient speaks Djiboutian Nicaraguan Creole. It developed at the very end of the visit that she also speaks Zimbabwean which turned out to be a better way of communication then using the translation tablet. Patient appeared annoyed during the visit and it was not until she volunteered that she spoke Zimbabwean at the end and I was able to communicate with her in Zimbabwean that she smiled and she and her relaxed and were able to communicate more freely. They live in a group home they have their own apartment there are other families there from [facility] but they all have their own apartments. She says she does have transportation to get to [facility] for the ultrasound and that took quite a bit of translation to establish. I did let her know that that is going to be where she is going to give as well in reviewing the chart while she today she is scheduled for new OB PE visit it develops that when she saw Dr. Pleitez on 05/30/2023 he did a complete exam for her on that day including Pap smear and testing for STIs which were all negative. She has had all of her blood work and it was all negative and she is not anemic and because she has no history of gestational diabetes that was not necessary to be done. She has her OB anatomy survey ultrasound at [facility] and she has the address written down in her wallet and she is going there on July 04. We will see her again in 4 weeks. She tells me she is eating well and getting plenty of protein and vegetables. Neither she nor her had other questions or concerns today for this visit. I did acknowledge that it must be very challenging to be in a new country and when she shared that she spoke Zimbabwean we were able to get much further. I will send her vitamin prescription by computer to [facility] and explained to her that there is no written prescription and that is how she will get the prescription. additionally she shared that she delivered all of her children in the hospital in [place] and she had no difficulty. And I also inquired as to what her future plans for having babies was and she said that she is having no more babies after this 1 and that she is done having babies after this. I asked her what her plan was and she said her plan is no more babies and I said we will talk about this further in future visits so that we workout exactly how she will accomplish this but she is very clear that she does not want anymore children after this 1. RTC 4 weeks Visit Date: 06/13/23 Last Updated by: Malena Klein Kolby Londono is a 37 yo here for mds rn with her , Robyn. LMP unknown. US on 04/18/23 at 9w1d gives ASM of 11/20/23 and GA today of 17w1d. She has moved here from [place]. BMI is 42. This was unplanned but the couple is happy. Pt saw Dr Pleitez for consult and has already had her labs done. She is scheduled for OB PE 06/23/23 with Dorota and for FAS at [facility] 07/04/23 @ 0830. She had an appt for genetic counseling at [facility] 06/07/23, report of visit is pending. Pt was given a folder in Zimbabwean as she does speak the language somewhat but her first language is Nicaraguan Creole. We reviewed danger signs, MD coverage 12/06 and how to reach MD after hours. She is taking her PNV daily and has no c/o at this time. AFP was ordered by Dr Pleitez but the result was for tumor marker and not . Will add order for AFP maternal serum and send the ordering worksheet once it is completed to Chemistry. Pt was too late for NT US but is scheduled for FAS as noted above. Pt will go to lab in the next couple of days. We reviewed first trimester education. Bry has no further questions at this time. She verbalizes understanding and agrees with plan. Results AMB Urinalysis, Automated UA Leukoctes 1 Loreto/uL Last Edit by RYAN Molina on 10/23/23 12:27 UA Nitrite Negative Last Edit by RYAN Molina on 10/23/23 12:27 UA Urobilinogen 0 mg/dL Last Edit by RYAN Molina on 10/23/23 12:27 UA Protein 1 mg/dL Last Edit by RYAN Molina on 10/23/23 12:27 UA pH 6 Last Edit by RYAN Molina on 10/23/23 12:27 UA Blood 0 Anshu/uL Last Edit by RYAN Molina on 10/23/23 12:27 UA Specific [place] 1.015 Last Edit by RYAN Molina on 10/23/23 12: 27 UA Ketone Positive Last Edit by RYAN Molina on 10/23/23 12:27 .5 Deepthi Stovall 10/23/23 12:27 UA Bilirubin 0 mg/dL Last Edit by RYAN Molina on 10/23/23 12:27 UA Glucose 0 mg/dL Last Edit by RYAN Molina on 10/23/23 12:27 Coding Level of Care Code [place] Diagnoses Encounter for supervision of normal in third trimester Z34.93 Marginal insertion of umbilical cord affecting management of mother O43.199 Echogenic focus of heart of fetus affecting antepartum care of mother O35.BXX0 Immigrant with language difficulty Z60.3 AMA (advanced maternal age) multigravida 35+ O09.529 Assessment & Plan Assessment & Plan (1) Encounter for supervision of normal in third trimester: Comment: see [facility]- mo Code(s): Z34.93 - Encounter for supervision of normal , unspecified, third trimester Category: Medical (2) Marginal insertion of umbilical cord affecting management of mother: Comment: see [facility] comments 10/03/23- . Code(s): O43.199 - Other malformation of placenta, unspecified trimester Category: Medical (3) Echogenic focus of heart of fetus affecting antepartum care of mother: Comment: see [facility] comments 10/03/23- Code(s): O35.BXX0 - Maternal care for other (suspected) abnormality and damage, cardiac anomalies, not applicable or unspecified Category: Medical (4) Immigrant with language difficulty: Code(s): Z60.3 - Acculturation difficulty Category: Social Hx (5) AMA (advanced maternal age) multigravida 35+: Comment: see [facility] comments 10/03/23- Code(s): O09.529 - Supervision of elderly multigravida, unspecified trimester Category: Medical Orders: Orders AMB Urinalysis Automated Today Z34. - Encounter for supervision of normal , unspecified, third trimester Group B Strep PCR Today Z34. - Encounter for supervision of normal , unspecified, third trimester Bacterial Vaginosis Panel Today Z34. - Encounter for supervision of normal , unspecified, third trimester CT NG by PCR Today Z34. - Encounter for supervision of normal , unspecified, third trimester
== END 2023-10-23 12:23 | disposition home or self-care (01) ==
LOC: HO.HWS 11:19
PROVIDERS: PCP Obstetrics & Gynecology; Visit Provider Advanced Practice Midwife
DX: Z34.93 Encounter for supervision of normal pregnancy, unspecified, third trimester (principal); O43.199 Other malformation of placenta, unspecified trimester; O35.BXX0 Maternal care for other (suspected) fetal abnormality and damage, fetal cardiac anomalies, not applicable or unspecified; Z60.3 Acculturation difficulty; O09.529 Supervision of elderly multigravida, unspecified trimester
CPT/HCPCS: 25942

== ENCOUNTER 2023-10-30 11:20 | Outpatient (AMB) | payer OTHER, SELFPAY ==
--- NOTE | 2023-10-30 11:27 | A.OFFVISPN_ITS ---
Intake Vital Signs 10/30/23 11:33 Height 5 ft 1 in Weight 224 lb BMI 42.3 BP 114/70 Intake Visit Reasons: CARLOS Intake Note: Vaginal pain and complains that her belly is hard Audit Lead Required: Yes Audit Lead Language: Canadian Creole Audit Lead Name: Rolando [id number] Allergies No Known Allergies Allergy (Verified 10/30/23 11:34) Medication List - Last Reconciled 10/30/23 by Dorota Cherry CNM PNV,calcium [id number]-[id number] acid 27 mg iron- 1 mg ( Vitamins Plus Low Iron) 1 tab PO DAILY Is last menstrual period known: No Post menopausal: No Patient : Yes PFSH Medical History AMA (advanced maternal age) multigravida 35+ Obesity, morbid, BMI 40.0-49.9 Social History Household Members: Spouse and Family Both parents involved: Yes Caregiver staying overnight: No Housing: Apartment Are you a primary managed care director to a significant other at home: No Do you presently have visiting nurse or other home services: No 75 years or older and lives alone: No Alcohol intake: never Patient Tobacco Use Status: Never used Tobacco Agree to transfusion: Yes service: No Current occupational status: unemployed Female Reproductive History Menstrual Age of Menarche: 15 control method: none Total pregnancies: 5 Full term: 4 Number of Living Children: 4 Date of last pap smear: 06/01/23 (negative) History History 5 Elective abortions 0 Para 4 Spontaneous abortions 0 Hx # Term Pregnancies 4 Ectopic pregnancies 0 Hx # Pregnancies 0 Multiple births 0 Past Pregnancies Del. Date GA/Weeks Outcome Route Wt Inf Gender Labor Cleo Anesthesia Location Provider Complicate 04/29/06 40 live - full term Male [facility] none 10/26/09 40 live - full term Male [facility] none 12/23/11 40 live - full term Male [facility] none 06/22/13 40 live - full term Female [facility] none Questionnaire History History : 5 Visit SAM Calculator Estimated Delivery Date Method Current WG Current Estimate 11/20/23 Ultrasound #1 37w 0d Expected Delivery Route/Plan Specific Issues/Plans 37yr. old ? ? G5 ?P4004 ? ? ?LMP: EDC:11/20/23 ?by 9 w u/s ? ? ?Blood type: A pos, GBS 10/23/23= neg. Problem List: 1. recent refugee to [place] from [facility] via [place], speaks Canadian Creole Estonian, and Kenyan and Ukrainian 2. AMA 3. BMI 42. Needs AP testing 3rd trimester NST/BPP; see list on summary for ANT schedule 4. Marginal placenta- needs 3rd trimester growth check- 32 wks...(ordered and as of yet to be scheduled... rn to call p 08/29/23.); 09/27/23- 06/27, 79th%, fetus transverse, back up. Testing: Panorama/and or First Tri screen: ? ?risk too late,,,,07/21/23-patient eventually had tseting after genetic screening visit at [facility] on 07/04/23 and then anatomy scan was rescheduled to 07/06/2023. NT scan: AFP:..see RN note FAS: pending 07/04-done 07/06/2023 results to chart later. Echogenic focus noted in heart no cardiac anomalies noted. Also marginal cord insertion noted plan for growth scan at 32 weeks. 10/03/2023 BPP 06/27. Per [facility] testing before 37 weeks is being canceled to resume at 37 weeks. Glucose: early n/a? 28 wk glucose: ?101 CBC 1st Tri: 12.7/38.4/306? 28 wk. CBC: 12.4.38.1 GBS: Vaccinations: Flu: informed available in .. Covid: Tdap: 09/13/23 Education/Services WIC: enrolled Social Supports/Stressors: Living situation: living in long term in [place] in own apartment with family( and other children). Supports:? Work/school: (children are attending school in [place] and like it-07/21/23) Transportation: unclear but states she has transportation Labor, and Concerns: Labor support: Plan: Hx of normal births.... Feeding Plans: uncertain control: wants no more children after this 1 but does not have specific plan at this time 06/23/23- continue to explore.... Reviewed options in detail 08/29/2023. At this point thinks she will want a Nexplanon, even with side effects of weight gain and bleeding; declines IU S an IUD and tubal ligation and Depo-Provera and pills. ANT schedule: see [employer] summary.... 10/09/23- MFM cancelled ANT after 10/03/23 (06/27,) until 37 w, for AMA, when it will resume. OB Visit Log Initial Weight: 189 lb 9.561 oz Date -?-?-?-?-?-?-?-?-?-?-?-?- EGA Weight Gest Week Fundal Ht Present FHR move Efface % Edema BP PrePreg We Weight GTT -?-?-?-?-?-?-?-?-?-?-?-?- Glucose LV Protein Blood Type 06/13/23 -?-?-?-?-?-?-?-?-?-?-?-?- 17w 1d 222 lb 8 oz (+32 lb 14.439 oz) 222 lb 8 oz -?-?-?-?-?-?-?-?-?-?-?-?- 06/23/23 -?-?-?-?-?-?-?-?-?-?-?-?- 18w 4d 225 lb (+35 lb 6.439 oz) 18 140 active 122/82 225 lb -?-?-?-?-?-?-?-?-?-?-?-?- 07/21/23 -?-?-?-?-?-?-?-?-?-?-?-?- 22w 4d 225 lb (+35 lb 6.439 oz) 25 140 active 120/72 225 lb -?-?-?-?-?-?-?-?-?-?-?-?- 08/18/23 -?-?-?-?-?-?-?-?-?-?-?-?- 26w 4d 228 lb (+38 lb 6.439 oz) 27 150 active 110/68 228 lb -?-?-?-?-?-?-?-?-?-?-?-?- 08/29/23 -?-?-?-?-?-?-?-?--?-?-?-?- 28w 1d 226 lb (+36 lb 6.439 oz) 30 150 active 100/70 226 lb -?-?-?-?-?-?-?-?-?-?-?-?- 09/13/23 -?-?-?-?-?-?-?-?-?-?-?-?- 30w 2d 226 lb (+36 lb 6.439 oz) 32 140 active 100/66 226 lb -?-?-?-?-?-?-?-?-?-?-?-?- 09/29/23 -?-?-?-?-?-?-?-?-?-?-?-?- 32w 4d 226 lb (+36 lb 6.439 oz) 32 150 active 100/60 226 lb -?-?-?-?-?-?-?-?-?-?-?-?- 10/09/23 -?-?-?-?-?-?-?-?-?-?-?-?- 34w 0d 224 lb (+34 lb 6.439 oz) 35 vtx 150 active 11 224 lb -?-?-?-?-?-?-?-?-?-?-?-?- 10/23/23 -?-?-?-?-?-?-?-?-?-?-?-?- 36w 0d 228 lb (+38 lb 6.439 oz) 37 ??? 150 active 10 228 lb -?-?-?-?-?-?-?-?-?-?-?-?- 10/30/23 -?-?-?-?-?-?-?-?-?-?-?-?- 37w 0d 224 lb (+34 lb 6.439 oz) term 38 vtx 150 active 10 224 lb -?-?-?-?-?-?-?-?-?-?-?-?- Notes Visit Date: 10/30/23 Last Updated by: Dorota Cherry CNM Patient is here with her at 37 weeks for her visit. She has been having some pains in her lower abdomen since last night they come and they go. She knows it is not quite time to go to the hospital and she knew she was coming here so she would get checked here. She wanted to be checked. She showed me pictures from the ultrasound last week where she was told that the baby was vertex. Cervix was palpable today external os 1 cm internal os is still closed cervix feels firm midposition presenting part vertex is high. Normal white discharge. Discussed labor readiness and what to do and if they had the car and gas to get to the hospital when it was time. Her said that sometimes when his has pains he wants to bring her to the hospital but she says not to go. Reviewed that she will know when it is time because she has been through this before and that if she feels it is time then they should go. Also reviewed the possibility of rupture membranes but she says this is never happened for her. Also reviewed control plans for she is planning the Nexplanon. She is hoping to breastfeed and not have sex for about 3 months after but after that she will want to go look for work. She says she and her will care for the baby. Discussed that if she is offered the Nexplanon at [facility] while she is hospitalized that it might be lainez to excepted there otherwise after she gives we will have her sign a form here to get the insurance company to order it and it would be best to place it with a period, but at least before she has sex, She says she does not have much appetite during the day because she is stressed but sometimes at night she does want to eat a little bit more. She says she drinks more water than anything else and she eats healthy and she pulled out an apple from her bag. I inquired about the stress she is experiencing and she says that it is hard being here because nobody wants to hire haitians who do not speak Greenlandic. She says they are alone here with each other and their children and they do not know anyone else here and there is no one helping them. They do not know any other haitians is here either. She said when she came she had a work permit but because she could not work because of the it has now .. She has an appointment at [facility] tomorrow for BPP. We will see her weekly until she delivers. Visit Date: 10/23/23 Last Updated by: Dorota Cherry CNM Patient is here with her at 36 weeks for her visit today the plan is to do cultures at this visit she was given the EP DS form in Estonian and her was helping her fill it out but she said all of the answers were her some visit done with translation through the tablet with accounting specialist to confirm this. She states she is doing well with the normal changes as the baby gets bigger. She feels most kicking down low and feels the baby's head is still down. On Wilton's today position feels uncertain to this examiner and heart was auscultated high on abdomen. SVE was done after speculum exam for cultures and group B strep cervix is tightly closed midposition high presenting part not palpable. EPDS translated to score after patient left equals 10.. She said she has an appointment tomorrow in [place] for an ultrasound. (though previous notes from [facility] stated that they were cancelling further evaluations until 37 weeks.) Position will be noted at ultrasound Discussed with patient that if the baby is not vertex that they will speak with her about turning the baby's position. RTC weekly until delivery according to previous notes testing to resume at 37 weeks(or per patient tomorrow). Visit Date: 10/09/23 Last Updated by: Dorota Cherry CNM Patient is here at 34 weeks and 0 days for visit at [facility]. She is feeling okay and feels like everything is happening as she remembers. She is having more discomfort and pain at night and it is harder to moving around in the bed and move in general as the weeks go by. The baby is moving well. She had her ultrasound at [facility] last week and it was reviewed. She said she communicated concern to the doctors that she was having too many ultrasounds in that meant something was wrong with the baby and they told her everything was fine and they wrote in the recommendations that she does not need to return therefore another ultrasound until 3 weeks from the date of that ultrasound. They canceled the other testing until 37 weeks when she will begin testing secondary to AMA. See the ultrasound from [facility] please. Discussed labor readiness. She says her now has a car and he will drive her to the hospital when she is in labor. She says all her other labors were normal and fast and she will know when it is time. We will see her in 2 weeks and I told her to expect cultures and a vaginal exam at that visit. Discussed the normalcy of these changes in the 3rd trimester. Visit Date: 09/29/23 Last Updated by: Dorota Cherry CNM Is here with her 10-year-old daughter for her visit because there is no school today because of the holiday. She said she is doing fine she had her ultrasound this week but there was not a Creole deaf interpreter at [facility] so she did not understand everything they said. I did review the reassuring findings with her. I also told her that her baby was transverse backup but that it probably would change position she said it hurts when the baby moves and he moves a lot whenever she eats or drinks cold water. She says she is eating very well but not a lot. She is not planning on having any more babies she says she has an appointment tomorrow at [facility] for testing (I could not find evidence of it in the chart so I had sent a request to the nurses to work on the kadeem eduling of what was ordered at the last visit with Edwige For testing. Additionally reviewed meds she says she is taking a small pill but not a big 1 so I asked her to double check on the prescriptions at the pharmacy because the vitamins were re sent at the last visit as well. We will see her here in 2 weeks but testing should be twice weekly.. Visit Date: 09/13/23 Last Updated by: Elena Braxton Note author: Edwige Lynch CNM/Elena Braxton, medical equipment technician. 30.2 wk CARLOS. Not taking PNV-she reports was not ever on them. Good FM. Denies LOF, VB. Confirms lower abdominal pressure when standing, resolved with rest. Doing well with no concerns. Good appetite and stays well hydrated. States she drinks more then she eats. Confirms lower back pain. She reports stretching at home to help with pain relief. She reports her last ultrasound was at 5 months in 05/2023. She states she had another ultrasound scheduled for today ( [facility] at 9:30 am) but did not attend. She had recent blood work performed recently and was concerned today?s appointment was due to irregular results. Discussed: PTL-LOF, VB, abd pain, ctx and when to call for further evalu ation. PEC - headaches: not resolved with 2 regular strength Tylenol doses, visual disturbances warnings and when to call for further evaluation. FKC: have something to eat and drink, should have 5 kicks in 1hr or 10 kicks in 2 hrs, if not call immediately for evaluation. Staying well hydrated, drink 8-10 glasses of water per day. Prescription for vitamins was sent to the pharmacy today. She was supplied with a 3 months supply for the next year. I offered the patient a referral to physical therapy to help with stretching and exercises to help with lower back pain. At this time she would like to defer. I did educated her that she is able to apply a heating pad. Follow up will be in 2 weeks. The office will work on rescheduling the ultrasound. Start AP testing for 32 wks. Of note: Patient confirms yesterday on the phone she was going to attend her appointment for the ultrasound at [facility]. When asked why she did not attend she stated she forgot. Visit Date: 08/29/23 Last Updated by: Dorota Cherry CNM Is here with her for her visit she could not void when the MA asked her to so the urine specimen was missed. She did void afterwards but that was not obtained. She is feeling pressure. She has some pain in her right lower quadrant, but it is really only when she is sitting if she is walking or resting lying down it does not hurt her she does not think it has to do with the baby's movement the baby's moving normally for her-she thinks it is a normal cramp. Did discuss the ligaments that get stretched in . Her abdomen palpated soft throughout the long visit. The ultrasound has not yet been scheduled for followup. Please see the ultrasound from [facility] which is not filed under ultrasounds but under in coming document dated 07/07/2023 performed 07/06/2023). She had panoramic testing done because of increased risk of Downs which was negative. Call placed to RNs to work on scheduling the ultrasound. Patient has not yet gone for her glucose testing and cbc she can go for that at any time. I asked her if she wanted to go today but she said no but then she later said she thought she was post to get it done today in the end she decided that she will come on Monday for that I told her it would be 3 tests,- The cbc the glucose testing in the syphilis testing. She was given the edinburgh EPDS form to fill out in Estonian, and this was discussed during the visit but she did not want to fill it out while she was here and wanted to take at home and fill it out and bring it back. I reminded her it was for us to know how she was doing and it was not for somebody else to fill out with her. She said she would do it herself and bring it back at her next visit. She took the form home Additionally I raised the issue of control for after and she had told me and she reiterated that she did not want to have any more babies after this and this baby was not planned E either. I reviewed long-term methods such as the Mirena IUD the ParaGard IUD in broad categories with their methods of action and typical side effects of bleeding and menstrual changes. I also reviewed tubal ligation but she would need to sign consent form for that and it would need to be discussed as well possibly at [facility] if that was an option th ere. She is not at all interested in that because of the possibility of the risks involved in surgery. She also is not interested in any of the IUDs but she wanted either shots or pills or the thing in her arm that she could use for 5 years I told her that the thing in the arm was for 3 years here in this country and it was call the Nexplanon and it had some side effects on bleeding and how women felt as well as weight gain. She said she would put up with those and that was probably going to be her choice. This summary was actually a much longer discussion with translation. She also intends to breastfeed until she can go back to work and then she will give the baby the bottle. I told her she will be called soon about the ultrasound which is for incre ased echogenic focus and marginal insertion. We will see her again in 2 weeks. Visit Date: 08/18/23 Last Updated by: Edwige Lynch CNM Note author: Edwige Lynch CNM/Mary Soria, medical equipment technician 26.4 wk CARLOS. Taking PNV. Good FM. Denies LOF, VB or abd pain. Good appetite and stays well hydrated. Partner at visit. Reports discomfort/pressure when sitting down and standing, relieved with laying down. Discussed: PTL-LOF, VB, abd pain, ctx and when to call for further evaluation. PEC - headaches: not resolved with 2 regular strength Tylenol doses, visual disturbances warnings and when to call for further evaluation.? FKC: have something to eat and drink, should have 5 kicks in 1hr or 10 kicks in 2 hrs, if not call immediately for evaluation. Staying well hydrated, drink 8-10 glasses of water per day. Plan to do GTT at next visit. RTO in 2 weeks. Visit Date: 07/21/23 Last Updated by: Dorota Cherry CNM Patient is here for visit with her . Translation was done more effectively today with a accounting specialist available on tablet identification of which is noted by the medical support specialist. The patient did not make much eye contact for until the end of the visit and had her head hung down and appeared lethargic and when I asked her about appearing tired she said her upper back hurt. She says that when she lays in a certain position it feels better and also it feels better when she lets of warm shower run on it. I discussed posture and trying to help hold herself in a better way to not make her back pain worse, and also suggested perhaps her might want to give her a massage and they laughed and he said that he does.. The patient was worried because she said that they told her there was something that they saw on the baby's head and I reviewed the ultrasound with them that showed the echogenic focus that was noted and also the marginal cord insertion. She has been praying every day for her baby because her other children are okay and she is very much hoping this baby will be okay to. Her baby is very active and this is reassuring to her. I had her record the baby's heart rate so they can share this with their other children and they enjoyed this. I reviewed the negative panoramic screen that showed that the fetus at is at low risk for trisomy 21 and 18 and 13. She says she is eating well and in fact is very hungry and all she can think gives eating after this visit. Her legs appeared slightly edematous to me but she says they are not and that is how they always look. They are still living in [place] at the same place but the children are in school in [place] because when they 1st came they were in a hotel there and the children like the school so that is where they go to school. They are happy that they are having a boy . Her next visit can be in 4 weeks and I also told her that in about 6 weeks she will be getting more lab work to check on the blood sugar to screen for diabetes ; And also that in around 32 weeks 10 weeks from now we will be requesting another ultrasound at [facility] to check on growth because of the marginal cord insertion. Visit Date: 06/23/23 Last Updated by: Dorota Cherry CNM Patient presents to visit which is scheduled as an OB PE however she has signed in later than appointment time though she says she arrived on time.. Patient speaks Estonian Canadian Creole. It developed at the very end of the visit that she also speaks Kenyan which turned out to be a better way of communication then using the translation tablet. Patient appeared annoyed during the visit and it was not until she volunteered that she spoke Kenyan at the end and I was able to communicate with her in Kenyan that she smiled and she and her relaxed and were able to communicate more freely. They live in a long term they have their own apartment there are other families there from [facility] but they all have their own apartments. She says she does have transportation to get to [facility] for the ultrasound and that took quite a bit of translation to establish. I did let her know that that is going to be where she is going to give as well in reviewing the chart while she today she is scheduled for new OB PE visit it develops that when she saw Dr. Pleitez on 05/30/2023 he did a complete exam for her on that day including Pap smear and testing for STIs which were all negative. She has had all of her blood work and it was all negative and she is not anemic and because she has no history of gestational diabetes that was not necessary to be done. She has her OB anatomy survey ultrasound at [facility] and she has the address written down in her wallet and she is going there on July 04. We will see her again in 4 weeks. She tells me she is eating well and getting plenty of protein and vegetables. Neither she nor her had other questions or concerns today for this visit. I did acknowledge that it must be very challenging to be in a new country and when she shared that she spoke Kenyan we were able to get much further. I will send her vitamin prescription by computer to [facility] and explained to her that there is no written prescription and that is how she will get the prescription. additionally she shared that she delivered all of her children in the hospital in [facility] and she had no difficulty. And I also inquired as to what her future plans for having babies was and she said that she is having no more babies after this 1 and that she is done having babies after this. I asked her what her plan was and she said her plan is no more babies and I said we will talk about this further in future visits so that we workout exactly how she will accomplish this but she is very clear that she does not want anymore children after this 1. 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 LMP unknown. US on 04/18/23 at 9w1d gives SAM of 11/20/23 and GA today of 17w1d. She has moved here from [facility]. BMI is 42. This was unplanned but the couple is happy. Pt saw Dr Pleitez for consult and has already had her labs done. She is scheduled for OB PE 06/23/23 with Dorota and for FAS at [facility] 07/04/23 @ 0830. She had an appt for genetic counseling at [facility] 06/07/23, report of visit is pending. Pt was given a folder in Kenyan as she does speak the language somewhat but her first language is Canadian Creole. We reviewed danger signs, MD coverage 12/06 and how to reach MD after hours. She is taking her PNV daily and has no c/o at this time. AFP was ordered by Dr Pleitez but the result was for tumor marker and not . Will add order for AFP maternal serum and send the ordering worksheet once it is completed to Chemistry. Pt was too late for NT US but is scheduled for FAS as noted above. Pt will go to lab in the next couple of days. We reviewed first trimester education. Bry has no further questions at this time. She verbalizes understanding and agrees with plan. Coding Level of Care Code [place] Diagnoses Encounter for supervision of normal in third trimester Z34.93 Marginal insertion of umbilical cord affecting management of mother O43.199 Echogenic focus of heart of fetus affecting antepartum care of mother O35.BXX0 Immigrant with language difficulty Z60.3 Assessment & Plan Assessment & Plan (1) Encounter for supervision of normal in third trimester: Comment: see [facility] comments- mo'b Code(s): Z34.93 - Encounter for supervision of normal , unspecified, third trimester Category: Medical (2) Marginal insertion of umbilical cord affecting management of mother: Comment: see [facility] comments 10/03/23- mo'b. Code(s): O43.199 - Other malformation of placenta, unspecified trimester Category: Medical (3) Echogenic focus of heart of fetus affecting antepartum care of mother: Comment: see [facility] comments 10/03/23-mo'b Code(s): O35.BXX0 - Maternal care for other (suspected) abnormality and damage, cardiac anomalies, not applicable or unspecified Category: Medical (4) Immigrant with language difficulty: Code(s): Z60.3 - Acculturation difficulty Category: Social Hx
[2023-10-30 11:33] VITALS: BP 114/70; BMI 42.3
== END 2023-10-30 12:38 | disposition home or self-care (01) ==
LOC: HO.HWS 11:20
PROVIDERS: PCP Obstetrics & Gynecology; Visit Provider Advanced Practice Midwife
DX: Z34.93 Encounter for supervision of normal pregnancy, unspecified, third trimester (principal); O43.199 Other malformation of placenta, unspecified trimester; O35.BXX0 Maternal care for other (suspected) fetal abnormality and damage, fetal cardiac anomalies, not applicable or unspecified; Z60.3 Acculturation difficulty
CPT/HCPCS: 25942; 59426

== ENCOUNTER → 2023-10-30 11:20 | Outpatient (BNVA) | payer OTHER, SELFPAY | PROVIDERS: PCP Obstetrics & Gynecology; Visit Provider Advanced Practice Midwife | DX: O09.523 Supervision of elderly multigravida, third trimester (principal); O43.193 Other malformation of placenta, third trimester; O35.BXX0 Maternal care for other (suspected) fetal abnormality and damage, fetal cardiac anomalies, not applicable or unspecified; Z60.3 Acculturation difficulty; Z3A.37 37 weeks gestation of pregnancy | CPT/HCPCS: 99212 ==